=== PATIENT | male | born 1960 | race African-American/Black ===

== ENCOUNTER 2017-07-06 10:17 | Emergency (ER) | payer OTHER ==
[2017-07-06 10:23] VITALS: BP 134/63; PULSE 53; TEMP 97.5; BMI 27.7
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
[2017-07-06] MEDS ORDERED: ONDANSETRON 4 MG/2 ML VIAL IVPUSH ONE (10:55)
[2017-07-06] MEDS ORDERED: morphine CARPU-JECT 4 MG/1 ML DISP.SYRIN IVPUSH ONE (10:55)
[2017-07-06 11:01] LABS: URINE APPEARANCE CLEAR; URINE BILIRUBIN NEGATIVE (NEGATIVE); URINE BLOOD NEGATIVE (NEGATIVE); URINE COLOR YELLOW; URINE GLUCOSE (UA) NEGATIVE (NEGATIVE); URINE KETONE NEGATIVE (NEGATIVE); URINE LEUK ESTERASE NEGATIVE (NEGATIVE); URINE NITRITE NEGATIVE (NEGATIVE); URINE PROTEIN NEGATIVE (NEGATIVE)
[2017-07-06 11:10] LABS: URINE MARIJUANA THC POSITIVE ng/ml (CUTOFF=50)
[2017-07-06] MEDS ORDERED: morphine CARPU-JECT 8 MG/1 ML DISP.SYRIN ONE (11:22)
[2017-07-06] MEDS ORDERED: ONDANSETRON 4 MG/2 ML VIAL ONE (11:23)
[2017-07-06 11:27] LABS: BASO % 1.1 % (0-2.0); EOS # 0.2 # (0-4.5); EOS % 6.9 % (0-4.5); LYMPH # 1.6 (8-40); MCH 26.8 pg (25.7-33.7); MEAN CELL VOLUME 83.8 fl (80-96); MEAN PLT VOLUME 8.7 fl (7.5-11.1); MONO # 0.3 # (3.8-10.2); NEUT # 1.5 # (42.8-82.8); NEUT % 40.9 % (42.8-82.8); PLATELET COUNT 191 K/MM3 (134-434); RDW 13.2 % (11.9-15.9); WHITE BLOOD COUNT 3.6 K/mm3 (4.0-10.0)
[2017-07-06 11:58] LABS: ALBUMIN 3.7 g/dl (3.4-5.0); ANION GAP 7 (8-16); BILIRUBIN,TOTAL 0.4 mg/dL (0.2-1.0); CALCIUM 8.3 mg/dL (8.5-10.1); CO2 26 mmol/L (21-32); CREATININE 0.9 mg/dL (0.7-1.3); GLUCOSE,RANDOM 91 mg/dL (74-106); SGOT/AST 10 U/L (15-37); SGPT/ALT 18 U/L (12-78); TOT PROT 6.9 g/dl (6.4-8.2)
[2017-07-06 12:01] LABS: ALK PHOS 67 U/L (45-117); CPK 320 IU/L (39-308); TROPONIN I < 0.02 ng/ml (0.00-0.05)
[2017-07-06 12:07] LABS: INR 1.04 (0.82-1.09); PROTHROMBIN TIME (PATIENT) 11.7 SEC (9.98-11.88)
[2017-07-06 14:21] LABS: URINE LEUK ESTERASE Negative (NEGATIVE)
--- NOTE | 2017-07-06 15:17 | EKG ---
Test Reason : Blood Pressure : / mmHG Vent. Rate : 046 BPM Atrial Rate : 046 BPM P-R Int : 150 ms QRS Dur : 106 ms QT Int : 436 ms P-R-T Axes : 037 038 037 degrees QTc Int : 381 ms SINUS BRADYCARDIA MINIMAL VOLTAGE CRITERIA FOR LVH, MAY BE NORMAL VARIANT BORDERLINE ECG WHEN COMPARED WITH ECG OF 11-FEB-2015 19:40, NO SIGNIFICANT CHANGE WAS FOUND Confirmed by JOHNATHAN BENJAMIN MD ([id number]) on 07/06/2017 3:16:57 PM Referred By: Confirmed By:JOHNATHAN BENJAMIN MD
== END 2017-07-06 15:10 | disposition home or self-care (01) ==
LOC: JER 10:17
PROC: 3E033NZ Introduction of Analgesics, Hypnotics, Sedatives into Peripheral Vein, Percutaneous Approach (ICD-10-PCS; principal; 2017-07-06)
PROC: 3E033GC Introduction of Other Therapeutic Substance into Peripheral Vein, Percutaneous Approach (ICD-10-PCS; 2017-07-06)
DX: R07.89 Other chest pain (principal)
CPT/HCPCS: 36415; 71010-TC; 71275-TC; 80053; 80307; 81003; 82550; 82553; 83880; 84484; 85025; 85610; 93005; 93010; 96374; 96375; 99285-25

== ENCOUNTER 2017-07-18 09:44 | Emergency (ER) | payer OTHER ==
[2017-07-18 09:59] VITALS: BP 138/54; PULSE 78; TEMP 97; BMI 27.7
[2017-07-18] MEDS ORDERED: ACETAMINOPHEN 500 MG TABLET (FP) ONE (10:38)
[2017-07-18] MEDS ORDERED: ACETAMINOPHEN 500 MG TABLET (FP) PO ONE (10:46)
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
== END 2017-07-18 11:06 | disposition home or self-care (01) ==
LOC: JERFT 09:44
DX: S13.4XXA Sprain of ligaments of cervical spine, initial encounter (principal); V44.6XXA Car passenger injured in collision with heavy transport vehicle or bus in traffic accident, initial encounter; Y92.481 Parking lot as the place of occurrence of the external cause; Y93.89 Activity, other specified; Y99.8 Other external cause status
CPT/HCPCS: 99281-25

== ENCOUNTER 2017-09-29 17:32 | Emergency (ER) | payer OTHER ==
[2017-09-29 17:35] VITALS: BP 127/71; PULSE 77; TEMP 98.4; BMI 26.9
--- NOTE | 2017-09-29 17:46 | PDOC ---
Rapid Medical Evaluation Chief Complaint: Chest Pain Time Seen by Provider: 09/29/17 17:35 Medical Evaluation: Allergies Allergy/AdvReac Type Severity Reaction Status Date / Time aspirin Allergy nose bleeds Verified 09/29/17 17:35 ibuprofen Allergy Verified 09/29/17 17:35 NSAIDS (Non-Steroidal Allergy Verified 09/29/17 17:35 Anti-Inflamma Vital Signs Temp Pulse Resp BP Pulse Ox 98.4 F 77 18 127/71 100 09/29/17 17:33 09/29/17 17:33 09/29/17 17:33 09/29/17 17:33 09/29/17 17:33 09/29/17 17:35 The patient presents with a chief complaint of: Left sided chest pain since this morning. Chest pain started at home with no provoking factors. I have performed a brief in-person evaluation of this patient; Pertinent physical exam findings: ambulatory, in no respiratory distress, RRR, CTAB I have ordered the following: CBC, CMP, Trop, pt/inr, cxr, ekg The patient will proceed to the ED for further evaluation.
[2017-09-29 18:31] LABS: BASO % 1.1 % (0-2.0); EOS % 2.6 % (0-4.5); HEMATOCRIT 38.1 % (35.4-49); HEMOGLOBIN 12.7 GM/dL (11.7-16.9); LYMPH % 34.7 % (8-40); MCH 28.4 pg (25.7-33.7); MCHC 33.2 g/dl (32.0-35.9); MEAN CELL VOLUME 85.4 fl (80-96); MONO % 6.6 % (3.8-10.2); PLATELET COUNT 211 K/MM3 (134-434); RBC 4.46 M/mm3 (4.00-5.60); RDW 13.4 % (11.9-15.9); WHITE BLOOD COUNT 5.5 K/mm3 (4.0-10.0)
[2017-09-29 19:08] LABS: ALK PHOS 70 U/L (45-117); ANION GAP 11 (8-16); BILIRUBIN,TOTAL 0.3 mg/dL (0.2-1.0); BLOOD UREA NITROGEN 10 mg/dL (7-18); CALCIUM 8.9 mg/dL (8.5-10.1); CHLORIDE 105 mmol/L (98-107); CO2 26 mmol/L (21-32); CREATININE 1.1 mg/dL (0.7-1.3); GLUCOSE,RANDOM 143 mg/dL (74-106); POTASSIUM 3.8 mmol/L (3.5-5.1); SGOT/AST 18 U/L (15-37); SGPT/ALT 20 U/L (12-78); SODIUM 142 mmol/L (136-145); TOT PROT 7.8 g/dl (6.4-8.2)
[2017-09-29 19:26] LABS: INR 0.99 (0.82-1.09); PROTHROMBIN TIME (PATIENT) 11.2 SEC (9.98-11.88)
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
--- NOTE | 2017-09-29 20:17 | PDOC ---
*Physical Exam - Vital Signs Last Vital Signs Temp Pulse Resp BP Pulse Ox 98.4 F 77 18 127/71 100 09/29/17 17:33 09/29/17 17:33 09/29/17 17:33 09/29/17 17:33 09/29/17 17:33 ED Treatment Course - LABORATORY CBC & Chemistry Diagram: 09/29/17 18:16 09/29/17 18:16 - ADDITIONAL ORDERS Additional order review: Laboratory Results 09/29/17 09/29/17 09/29/17 18:16 18:16 18:16 PT with INR 11.20 INR 0.99 Sodium 142 Potassium 3.8 Chloride 105 Carbon Dioxide 26 Anion Gap 11 BUN 10 D Creatinine 1.1 D Creat Clearance w eGFR > 60 Random Glucose 143 H D Calcium 8.9 Total Bilirubin 0.3 D AST 18 D ALT 20 Alkaline Phosphatase 70 Creatine Kinase 516 H Creatine Kinase Index 0.3 CK-MB (CK-2) 1.801 Troponin I < 0.02 Total Protein 7.8 Albumin 4.0 09/29/17 18:16 RBC 4.46 MCV 85.4 MCHC 33.2 RDW 13.4 MPV 9.0 Neutrophils % 55.0 D Lymphocytes % 34.7 Monocytes % 6.6 Eosinophils % 2.6 Basophils % 1.1 Medical Decision Making - Medical Decision Making 09/29/17 20:16 agree with care from ZARA Solano *DC/Admit/Observation/Transfer Diagnosis at time of Disposition: Atypical chest pain - Discharge Dispostion Disposition: HOME Condition at time of disposition: Good - Referrals Referrals: Kentrell Awad MD [Staff Physician] - Call tomorrow Oskar Carson MD [Primary Care Provider] - - Patient Instructions Printed Discharge Instructions: DI for Atypical Chest Pain Additional Instructions: Discharge Instructions: -Your chest xray, EKG and labs were normal. -Please follow up with Dr. Awad within 1 week if you continue to have chest pain -Return to the ER immediately with any worsening or concerning symptoms - Post Discharge Activity
--- NOTE | 2017-09-30 09:56 | EKG ---
Test Reason : Blood Pressure : / mmHG Vent. Rate : 062 BPM Atrial Rate : 062 BPM P-R Int : 156 ms QRS Dur : 088 ms QT Int : 388 ms P-R-T Axes : 060 030 037 degrees QTc Int : 393 ms NORMAL SINUS RHYTHM NORMAL ECG WHEN COMPARED WITH ECG OF 06-JUL-2017 10:23, NO SIGNIFICANT CHANGE WAS FOUND Confirmed by JANET ALDRIDGE MD ([id number]) on 09/30/2017 9:56:36 AM Referred By: Confirmed By:JANET ALDRIDGE MD
== END 2017-09-29 21:21 | disposition home or self-care (01) ==
LOC: JER 17:32
DX: R07.89 Other chest pain (principal); I25.10 Atherosclerotic heart disease of native coronary artery without angina pectoris; I10 Essential (primary) hypertension; Z95.5 Presence of coronary angioplasty implant and graft; I42.8 Other cardiomyopathies; B18.2 Chronic viral hepatitis C; F41.9 Anxiety disorder, unspecified
CPT/HCPCS: 36415; 71046-TC-FY; 80053; 82550; 82553; 84484; 85025; 85610; 93005; 93010; 99283-25

== ENCOUNTER 2017-10-22 13:35 | Emergency (ER) | payer OTHER ==
[2017-10-22 13:40] VITALS: PULSE 78; BMI 26.9
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
--- NOTE | 2017-10-22 15:07 | PDOC ---
Attending Attestation - Resident Resident Name: Domo Crowder - ED Attending Attestation I have performed the following: The case was reviewed & discussed with the resident - Medical Decision Making 57 years old hypertension cardiomyopathy hep C diabetes presents with 1 week history of generalized abdominal discomfort headaches frequent urination. Patient does not take any medications for his diabetes. Symptoms have been moderate persistent constant no exacerbating or relieving factors. No fever vomiting diarrhea. Differential diagnosis includes infection less likely ACS, hypoglycemia We'll check labs hydrate IV Tylenol observe and reassess. to follow up labs and reasses <Simon Rick - Last Filed: 10/22/17 16:15> - HPI HPI: 10/22/17 15:14 The patient is a 57 year old male, with a significant PMH of hypertension, hyperlipidemia, pre-diabetes mellitus, hepatitis C, who presents to the emergency department with 1 week of generalized weakness, headache, abdominal discomfort, nausea without vomiting and increased urinary frequency. The patient states he does not take medicine for the pre-diabetes mellitus. The patient denies chest pain, shortness of breath, and dizziness. Denies fever, chills, vomit, diarrhea and constipation. Denies dysuria and hematuria. Allergies: Multiple allergies. See nursing notes. Social History: Denies EtOH use. Denies tobacco use. Reports occasional marijuana use. Documentation prepared by Juventino Lawson, acting as medical billing supervisor for Simon Rick MD. - Physicial Exam PE: 10/22/17 15:55 Vitals: Triage vital signs reviewed General Appearance: No acute distress, well nourished, well developed Head: Atraumatic Eyes: Pupils equal reactive round, extraocular movement intact Ears: TM's normal bilaterally Nose: Nares patent bilaterally; no nasal congestion Throat: Posterior oropharynx without erythema, mucous membranes moist Neck: Supple; No nuchal rigidity Chest Wall: Nontender Cardiac: Regular rate and rhythm, no murmurs, no rubs, no gallops Lungs: Clear to auscultation bilateral, good air movement bilaterally Abdomen: Soft, nondistended, normal bowel sounds, nontender to palpation Rectal: Exam deferred Extremities: Full range of motion to all extremities, no cyanosis, clubbing, or edema Skin: Warm and dry, no rashes or lesions, no rash, no petechiae Neuro: AOX3; Cranial Nerves 2-12 grossly intact, Strength intact to all extremities, Sensation intact to all extremities, gait normal Psych: Normal mood, normal affect <Juventino Lawson - Last Filed: 10/22/17 16:33>
[2017-10-22] MEDS ORDERED: METOCLOPRAMIDE HCL INJECTION 10 MG/2 ML VIAL IVPUSH ONE (15:09)
[2017-10-22] MEDS ORDERED: SODIUM CHLORIDE 1,000 ML IV STA ×2 (15:09)
[2017-10-22] MEDS ORDERED: METOCLOPRAMIDE HCL INJECTION 10 MG/2 ML VIAL ONE (15:49)
[2017-10-22 16:13] LABS: BASO % 0.9 % (0-2.0); EOS % 2.7 % (0-4.5); HEMATOCRIT 36.4 % (35.4-49); HEMOGLOBIN 12.4 GM/dL (11.7-16.9); LYMPH % 26.8 % (8-40); MCH 28.8 pg (25.7-33.7); MEAN CELL VOLUME 84.7 fl (80-96); MEAN PLT VOLUME 8.8 fl (7.5-11.1); MONO % 6.6 % (3.8-10.2); PLATELET COUNT 199 K/MM3 (134-434); RDW 13.4 % (11.9-15.9); WHITE BLOOD COUNT 5.9 K/mm3 (4.0-10.0)
[2017-10-22] MEDS ORDERED: ACETAMINOPHEN 1000 MG/100 ML VIAL (NON FORMULARY) IVPB ONE (16:21)
[2017-10-22 16:36] LABS: ALBUMIN 3.8 g/dl (3.4-5.0); ALK PHOS 65 U/L (45-117); ANION GAP 10 (8-16); BILIRUBIN,TOTAL 0.3 mg/dL (0.2-1.0); BLOOD UREA NITROGEN 13 mg/dL (7-18); CALCIUM 9.3 mg/dL (8.5-10.1); CHLORIDE 105 mmol/L (98-107); CO2 27 mmol/L (21-32); CREATININE 1.2 mg/dL (0.7-1.3); GLUCOSE,RANDOM 108 mg/dL (74-106); POTASSIUM 3.8 mmol/L (3.5-5.1); SGOT/AST 22 U/L (15-37); SGPT/ALT 19 U/L (12-78); SODIUM 142 mmol/L (136-145); TOT PROT 7.5 g/dl (6.4-8.2)
[2017-10-22] MEDS ORDERED: ACETAMINOPHEN INJECTION 100 ML IVPB ONE (16:36)
[2017-10-22 16:50] LABS: URINE APPEARANCE TURBID; URINE BILIRUBIN NEGATIVE (<2.0 mg/dL); URINE BLOOD NEGATIVE (NEGATIVE); URINE COLOR YELLOW; URINE GLUCOSE (UA) NEGATIVE (NEGATIVE); URINE KETONE NEGATIVE (NEGATIVE); URINE LEUK ESTERASE NEGATIVE (NEGATIVE); URINE NITRITE NEGATIVE (NEGATIVE); URINE PROTEIN NEGATIVE (NEGATIVE)
--- NOTE | 2017-10-22 18:08 | PDOC ---
*Physical Exam - Vital Signs Last Vital Signs Temp Pulse Resp BP Pulse Ox 98.3 F 78 18 110/68 98 10/22/17 13:38 10/22/17 13:38 10/22/17 13:38 10/22/17 13:38 10/22/17 13:38 - Physical Exam Comments: 10/22/17 18:05 gen: aaox3, nad heart: +s1s2 reg lungs: cta b/l abd: soft, nt/nd +bs Ext: no edema ED Treatment Course - LABORATORY CBC & Chemistry Diagram: 10/22/17 16:00 10/22/17 16:00 - ADDITIONAL ORDERS Additional order review: Laboratory Results 10/22/17 10/22/17 10/22/17 16:15 16:15 16:00 Sodium Potassium Chloride Carbon Dioxide Anion Gap BUN Creatinine Creat Clearance w eGFR Random Glucose Calcium Total Bilirubin AST ALT Alkaline Phosphatase Troponin I < 0.02 Total Protein Albumin Urine Color Yellow Urine Appearance Turbid Urine pH 7.0 Ur Specific [place] 1.023 Urine Protein Negative Urine Glucose (UA) Negative Urine Ketones Negative Urine Blood Negative Urine Nitrite Negative Urine Bilirubin Negative Urine Urobilinogen 2.0 Ur Leukocyte Esterase Negative Acetone, Qual Negative 10/22/17 16:00 Sodium 142 Potassium 3.8 Chloride 105 Carbon Dioxide 27 Anion Gap 10 BUN 13 D Creatinine 1.2 Creat Clearance w eGFR > 60 Random Glucose 108 H D Calcium 9.3 Total Bilirubin 0.3 AST 22 D ALT 19 Alkaline Phosphatase 65 Troponin I Total Protein 7.5 Albumin 3.8 Urine Color Urine Appearance Urine pH Ur Specific [place] Urine Protein Urine Glucose (UA) Urine Ketones Urine Blood Urine Nitrite Urine Bilirubin Urine Urobilinogen Ur Leukocyte Esterase Acetone, Qual 10/22/17 16:00 RBC 4.30 MCV 84.7 MCHC 34.0 RDW 13.4 MPV 8.8 Neutrophils % 63.0 Lymphocytes % 26.8 D Monocytes % 6.6 Eosinophils % 2.7 Basophils % 0.9 - Medications Given in the ED: ED Medications Discontinued Medications Generic Name Dose Route Start Last Admin Trade Name Freq PRN Reason Stop Dose Admin Acetaminophen 1,000 mg 10/22/17 16:21 10/22/17 16:58 Ofirmev Injection - IVPB 10/22/17 16:22 1,000 mg ONCE ONE Administration Sodium Chloride 1,000 mls @ 1,000 mls/hr 10/22/17 15:09 10/22/17 16:02 Normal Saline - IV 10/22/17 16:08 1,000 mls/hr ASDIR STA Administration Sodium Chloride 1,000 mls @ 1,000 mls/hr 10/22/17 15:09 10/22/17 16:18 Normal Saline - IV 10/22/17 16:08 1,000 mls/hr ASDIR STA Administration Metoclopramide HCl 10 mg 10/22/17 15:09 10/22/17 16:03 Reglan Injection - IVPUSH 10/22/17 15:10 10 mg ONCE ONE Administration Medical Decision Making - Medical Decision Making 10/22/17 18:06 pt signed out by the prior attending pending troponin results pt states he has epigastric burning first thing in the AM has appt with Dr. Delatorre on November 16 hx of gastritis and EGD in the past worse when eating tomatoes and drinking soda abd soft, nt/nd +bs discussed all lab results. 10/22/17 18:07 pt stable for d/c to home answered all questions on nexium discussed all reasons to return to the ED and need for follow up *DC/Admit/Observation/Transfer Diagnosis at time of Disposition: Epigastric pain Headache Qualifiers: Headache type: unspecified Headache chronicity pattern: unspecified pattern Intractability: not intractable Qualified Code(s): R51 - Headache - Discharge Dispostion Disposition: HOME Condition at time of disposition: Good Admit: No - Referrals Referrals: Oskar Carson MD [Primary Care Provider] - Naif Delatorre MD [Staff Physician] - - Patient Instructions Printed Discharge Instructions: DI for Diabetes Type 2, DI for Headache, DI for Abdominal Pain-Adult Additional Instructions: Please return to the ER if you experience concerning or worsening symptoms including worsening headache, abdominal pain, vomiting, fevers, or difficulty breathing. Your lab results were normal here in the ER. It is important that you call to schedule a follow up appointment with your primary care provider to discuss your ER visit and further management of your symptoms. - Post Discharge Activity
[2017-10-22 18:56] VITALS: BP 127/85; TEMP 98.5
--- NOTE | 2017-10-23 09:28 | EKG ---
Test Reason : Blood Pressure : / mmHG Vent. Rate : 066 BPM Atrial Rate : 066 BPM P-R Int : 152 ms QRS Dur : 096 ms QT Int : 396 ms P-R-T Axes : 057 039 051 degrees QTc Int : 415 ms NORMAL SINUS RHYTHM NORMAL ECG WHEN COMPARED WITH ECG OF 29-SEP-2017 17:41, NO SIGNIFICANT CHANGE WAS FOUND Confirmed by LORAINE BARNARD MD ([id number]) on 10/23/2017 9:27:38 AM Referred By: Confirmed By:LORAINE BARNARD MD
== END 2017-10-22 18:35 | disposition home or self-care (01) ==
LOC: JER 13:35
PROC: 3E0337Z Introduction of Electrolytic and Water Balance Substance into Peripheral Vein, Percutaneous Approach (ICD-10-PCS; principal; 2017-10-22)
PROC: 3E033GC Introduction of Other Therapeutic Substance into Peripheral Vein, Percutaneous Approach (ICD-10-PCS; 2017-10-22)
PROC: 3E033NZ Introduction of Analgesics, Hypnotics, Sedatives into Peripheral Vein, Percutaneous Approach (ICD-10-PCS; 2017-10-22)
DX: R51 Headache (principal); I10 Essential (primary) hypertension; E11.9 Type 2 diabetes mellitus without complications; I42.9 Cardiomyopathy, unspecified; Z98.61 Coronary angioplasty status; B18.2 Chronic viral hepatitis C
CPT/HCPCS: 36415; 80053; 81003; 82009; 84484; 85025; 93005; 93010; 99283-25; J0131; J7030

== ENCOUNTER 2018-12-27 06:15 | Inpatient (IN) | payer OTHER ==
[2018-12-20 13:13] VITALS: BMI 25.9
[2018-12-27] MEDS ORDERED: CEFAZOLIN 2 GM/D5W 2 GM/50 ML ML IVPB ONE (06:46)
[2018-12-27] MEDS ORDERED: ROPIVICAINE 0.2%/MORPH PF/KETOROLAC - 51ML DISP.SYRINGE IA ONE ×3 (06:46→10:06)
[2018-12-27] MEDS ORDERED: GABAPENTIN 300 MG CAPSULE (FP) PO ONE (06:46)
[2018-12-27] MEDS ORDERED: oxyCODONE HCL 10 MG SUSTAINED ACTING TABLET PO ONE ×2 (06:46→21:15)
[2018-12-27] MEDS ORDERED: TRANEXAMIC ACID 1000 MG/10 ML VIAL IVPUSH ONE ×2 (06:46→10:05)
[2018-12-27] MEDS ORDERED: CELECOXIB 200 MG CAPSULE PO ONE (06:46)
[2018-12-27] MEDS ORDERED: PANTOPRAZOLE 40 MG TABLET (FP) PO ONE (06:47)
[2018-12-27] MEDS ORDERED: CELECOXIB 200 MG CAPSULE ONE (06:53)
[2018-12-27] MEDS ORDERED: VANCOMYCIN 1,000 MG VIAL (RESTRICTED TO ID ONLY) ONE (07:07)
[2018-12-27] MEDS ORDERED: ceFAZolin SODIUM 1 GM VIAL ONE (07:07)
[2018-12-27] MEDS ORDERED: ePHEDrine SULFATE 50 MG/1 ML AMPULE ONE (07:15)
[2018-12-27] MEDS ORDERED: SUCCINYLCHOLINE CHLORIDE 200 MG/10 ML VIAL ONE (07:16)
[2018-12-27] MEDS ORDERED: PROPOFOL 20 ML ONE ×3 (07:16)
[2018-12-27] MEDS ORDERED: BUPIVACAINE HCL/PF 0.5% (5MG/ML) 10 ML VIAL ONE (07:19)
[2018-12-27] MEDS ORDERED: LIDOCAINE 1% P/F 10 MG/ML VIAL ONE (07:25)
[2018-12-27] MEDS ORDERED: MIDAZOLAM HCL 2 MG/2 ML SINGLE DOSE VIAL ONE ×3 (07:25→09:56)
[2018-12-27] MEDS ORDERED: DEXAMETHASONE SOD PHOSPHATE 4 MG/1 ML VIAL ONE (07:27)
--- NOTE | 2018-12-27 07:47 | HP ---
Admitting History and Physical - Admission Chief Complaint: right hip osteoarthritis x years History of Present Illness: 58 year old male presents today in regard to his right hip. Longstanding history of right hip osteoarthritis. Patient complains of pain, limited ROM, difficulty ambulating and difficulties completing activities of daily living. Patient has failed conservative treatment options including PO medications, injections, activity modifications and exercise programs. At this point, patient wishes to proceed with surgical intervention, right total hip arthroplasty - MAKOplasty. History Source: Patient - Past Medical History Cardiovascular: Yes: HTN Musculoskeletal: Yes: Osteoarthritis - Past Surgical History Additional Past Surgical History: See written history & physical. - Smoking History Smoking history: Never smoked Have you smoked in the past 12 months: No Aproximately how many cigarettes per day: 0 - Alcohol/Substance Use Hx Alcohol Use: No Home Medications - Allergies Allergies/Adverse Reactions: Allergies Allergy/AdvReac Type Severity Reaction Status Date / Time aspirin Allergy Mild nose bleeds Verified 12/27/18 07:09 ibuprofen Allergy Mild NOSE BLEEDS Verified 12/27/18 07:09 NSAIDS (Non-Steroidal Allergy Mild NOSE BLEEDS Verified 12/27/18 07:09 Anti-Inflamma - Home Medications Home Medications: Ambulatory Orders Amlodipine Besylate [Norvasc -] 10 mg PO DAILY 07/06/17 Oxycodone HCl 30 mg PO Q4H PRN 10/22/17 Aspirin [Aspirin EC] 81 mg PO DAILY 12/20/18 Multivitamin [One-Daily Multi-Vitamin] 1 each PO DAILY 12/20/18 Family Disease History - Family Disease History Family Disease History: Other: Father (HTN-), Mother (HTN-) Review of Systems - Review of Systems Musculoskeletal: reports: Decreased ROM (right hip), Joint Pain (right hip) Physical Examination Vital Signs: Vital Signs Temperature 99 F 12/27/18 06:38 Pulse Rate 74 12/27/18 06:38 Respiratory Rate 18 12/27/18 06:38 Blood Pressure 126/76 12/27/18 06:38 O2 Sat by Pulse Oximetry (%) Constitutional: Yes: Well Nourished, No Distress Eyes: Yes: Conjunctiva Clear HENT: Yes: Atraumatic Neck: Yes: Supple Cardiovascular: Yes: Regular Rate and Rhythm Respiratory: Yes: Regular Gastrointestinal: Yes: Soft ...Rectal Exam: Yes: Deferred Musculoskeletal: Yes: Joint Stiffness (right hip), Joint Swelling (right hip) Assessment/Plan 58 year old male presents today in regard to his right hip. Longstanding history of right hip osteoarthritis. Patient complains of pain, limited ROM, difficulty ambulating and difficulties completing activities of daily living. Patient has failed conservative treatment options including PO medications, injections, activity modifications and exercise programs. At this point, patient wishes to proceed with surgical intervention, right total hip arthroplasty - MAKOplasty. Pros, cons, risks, benefits and alternatives of a right total hip arthroplasty - MAKOplasty, was discussed with the patient at length. Patient confirms his understanding and consents to proceed with a right total hip arthroplasty, MAKOplasty.
[2018-12-27] MEDS ORDERED: oxyCODONE HCL 5 MG TABLET PO PRN ×5 (08:57→21:14)
[2018-12-27] MEDS ORDERED: ONDANSETRON 4 MG/2 ML VIAL IVPUSH PRN ×2 (08:57→12:01)
[2018-12-27] MEDS ORDERED: ACETAMINOPHEN 325 MG TABLET (FP) PO SCH (09:00)
[2018-12-27] MEDS ORDERED: oxyCODONE HCL 10 MG SUSTAINED ACTING TABLET PO SCH (10:00)
[2018-12-27] MEDS ORDERED: VANCOMYCIN 1,000 MG VIAL (RESTRICTED TO ID ONLY) IVPB ONE (10:05)
--- NOTE | 2018-12-27 11:55 | OP ---
Operative Note - Note: Operative Date: 12/27/18 Pre-Operative Diagnosis: right hip OA Operation: right ADILENE FLORY Post-Operative Diagnosis: Same as Pre-op Surgeon: River Solis Foot Cutter: Iza Frye Anesthesia: Spinal Estimated Blood Loss (mls): 200
--- NOTE | 2018-12-27 11:59 | PN ---
Progress Note (short form) - Note Progress Note: Pt states he has not had a nosebleed in 10+ yrs. Does not remember what ASA dose he took to cause nosebleed. Currently taking 81mg ASA without incident. Will need ASA for DVT ppx. Alternatives such as Xarelto or Eliquis may cause worse nosebleeds. Will try ASA 162mg BID to see if this causes any bleeds.
[2018-12-27] MEDS ORDERED: ACETAMINOPHEN 1000 MG/100 ML VIAL (NON FORMULARY) IVPB ONE (12:00)
[2018-12-27] MEDS ORDERED: traMADol HCL 50 MG TABLET PO SCH (12:00)
[2018-12-27] MEDS ORDERED: MAG HYDROX/AL HYDROX/SIMETH 30 ML UNIT-DOSE CUP PO PRN (12:01)
[2018-12-27] MEDS ORDERED: MAGNESIUM HYDROX 2400MG/30ML ORAL SUSPENSION 30 ML CUP PO PRN (12:01)
[2018-12-27] MEDS ORDERED: ACETAMINOPHEN INJECTION 100 ML IVPB ONE (12:07)
[2018-12-27] MEDS ORDERED: traMADol HCL 50 MG TABLET ONE (12:07)
[2018-12-27] MEDS ORDERED: LACTATED RINGERS SOLUTION 1,000 ML IV SCH (12:15)
[2018-12-27] MEDS: ACETAMINOPHEN 325 MG TABLET (FP) PO SCH (17:42)
[2018-12-27] MEDS: traMADol HCL 50 MG TABLET PO SCH (17:44)
[2018-12-27] MEDS: CEFAZOLIN 2 GM/D5W 2 GM/50 ML ML IVPB SCH (17:46)
[2018-12-27] MEDS ORDERED: DEXAMETHASONE SOD PHOSPHATE 10 MG/1 ML VIAL IVPB ONE (20:00)
[2018-12-27] MEDS ORDERED: oxyCODONE HCL 10 MG SUSTAINED ACTING TABLET ONE (21:16)
[2018-12-27] MEDS: SENNOSIDES/DOCUSATE COMBO (SENNA PLUS) TABLET (UD) PO SCH (21:19)
[2018-12-27] MEDS: oxyCODONE HCL 10 MG SUSTAINED ACTING TABLET PO SCH (21:20)
[2018-12-27] MEDS: ASCORBIC ACID 500 MG TABLET (FP) PO SCH (21:21)
[2018-12-27] MEDS: GABAPENTIN 300 MG CAPSULE (FP) PO SCH (21:21)
[2018-12-28] MEDS: traMADol HCL 50 MG TABLET PO SCH ×5 (00:40→23:16)
[2018-12-28] MEDS: ACETAMINOPHEN 325 MG TABLET (FP) PO SCH ×5 (00:41→23:15)
[2018-12-28] MEDS: CEFAZOLIN 2 GM/D5W 2 GM/50 ML ML IVPB SCH (02:00)
[2018-12-28 08:14] LABS: HEMATOCRIT 34.9 % (35.4-49); HEMOGLOBIN 11.4 GM/dl (11.7-16.9); MCH 28.3 pg (25.7-33.7); MCHC 32.8 g/dl (32.0-35.9); MEAN CELL VOLUME 86.2 fl (80-96); PLATELET COUNT 184 K/MM3 (134-434); RBC 4.05 M/mm3 (4.00-5.60); RDW 12.2 % (11.9-15.9); WHITE BLOOD COUNT 12.1 K/mm3 (4.0-10.8)
[2018-12-28 08:22] LABS: CALCIUM 8.3 mg/dl (8.5-10); CREATININE 0.9 mg/dl (0.55-1.3); POTASSIUM 4.4 mmol/L (3.5-5.1)
[2018-12-28] MEDS: SENNOSIDES/DOCUSATE COMBO (SENNA PLUS) TABLET (UD) PO SCH ×2 (09:11→21:14)
[2018-12-28] MEDS: GABAPENTIN 300 MG CAPSULE (FP) PO SCH ×2 (09:12→21:14)
[2018-12-28] MEDS: amLODIPine BESYLATE 10 MG TABLET (FP) PO SCH (09:12)
[2018-12-28] MEDS: ASCORBIC ACID 500 MG TABLET (FP) PO SCH ×2 (09:12→21:13)
[2018-12-28] MEDS: ASPIRIN COATED 81 MG TABLET.EC PO SCH ×2 (09:13→21:13)
[2018-12-28] MEDS: oxyCODONE HCL 10 MG SUSTAINED ACTING TABLET PO SCH ×2 (09:13→21:13)
[2018-12-28] MEDS: PANTOPRAZOLE 40 MG TABLET (FP) PO SCH (09:14)
[2018-12-28] MEDS: MULTIVITAMINS (DAILY MVI) TABLET (FP) PO SCH (09:28)
--- NOTE | 2018-12-28 15:50 | PN ---
Progress Note (short form) - Note Progress Note: S: Pt. Sitting comfortably in a chair. No complaints. Ambulating O: VAS 2/10 A/P: POD #1 s/p Right Total Hip Replacement 1) continue meds as ordered 2) No apparent anesthetic complications
[2018-12-28] MEDS: LACTATED RINGERS SOLUTION 1,000 ML IV SCH (21:41)
--- NOTE | 2018-12-29 02:06 | PN ---
Progress Note (short form) - Note Progress Note: Pt seen and examined. Doing well. No nosebleed. AVSS Selected Entries 12/28/18 20:00 Temperature 98.0 F Pulse Rate 51 L Respiratory 18 Rate Blood Pressure 141/75 O2 Sat by Pulse 99 Oximetry (%) Oxygen Delivery Room Air Method Laboratory Tests 12/28/18 12/28/18 07:29 07:29 WBC 12.1 H Hgb 11.4 L Hct 34.9 L Plt Count 184 Sodium 135 L Potassium 4.4 Chloride 103 Carbon Dioxide 23 Anion Gap 9 BUN 13.0 Creatinine 0.9 Random Glucose 134 H Calcium 8.3 L Gen: NAD RLE: c/d/i, NVID A/P POD#1 s/p R FLORY PT/OOB - WBAT RLE D/C home in AM
--- NOTE | 2018-12-29 02:28 | DS ---
Physical Examination Vital Signs: Vital Signs Temperature 98.0 F 12/28/18 20:00 Pulse Rate 51 L 12/28/18 20:00 Respiratory Rate 18 12/28/18 20:57 Blood Pressure 141/75 12/28/18 20:00 O2 Sat by Pulse Oximetry (%) 97 12/28/18 20:57 Labs: CBC, BMP 12/28/18 07:29 12/28/18 07:29 Discharge Summary Reason For Visit: RIGHT HIP OSTEOARTHRITIS Current Active Problems Osteoarthritis of right hip (Acute) Procedures: Principal: right ADILENE FLORY Hospital Course: Admitted for elective surgery. Procedure performed without complications. Pt received postoperative antibiotic prophylaxis and DVT ppx. Ambulated with physical therapy. Stable for discharge home with outpatient followup. Condition: Stable - Instructions Diet, Activity, Other Instructions: Dr Solis - Hip Replacement Instructions Keep the Aquacel dressing on until removed by Dr. Solis in 10-14 days - it is antibacterial and waterproof and you can shower with it on. Call the office for a follow-up appointment with Dr. Solis in 10-14 days. ~ Take TWO BABY ASPIRINS (total 162mg) in the morning after breakfast and TWO BABY ASPIRINS (total 162mg) in the evening after dinner for 6 weeks to prevent blood clots in your legs. Take one Pantoprazole 40mg daily for 6 weeks to protect against heartburn and ulcers. Take Cephalexin (antibiotic) 3x/day for 10 days to help prevent skin infection. Take a multivitamin, stool softener and extra Vitamin C supplement daily. For pain: Resume your preop dose of Oxycodone every 4-6hrs. Activity: You can put as much weight on the operative leg as you want. For the first 6 weeks, all you need to do is walk around the house, go up/down stairs, and sit down/get up. After 6 weeks when everything is healed (and bone has grown into the implant) you will be sent for more intensive outpatient physical therapy. Always use a walker or cane for balance and to prevent falls. Expect to see swelling / bruising from the operative site all the way down to your toes. Wear the Compression stocking on the operative side during the day to minimize how much swelling there is in your foot/ankle. Don't wear the stocking at night. You don't have to wear the stocking on the other side. Disposition: [facility]NS/HOME HEALTH CARE - Home Medications Comprehensive Discharge Medication List: Ambulatory Orders Amlodipine Besylate [Norvasc -] 10 mg PO DAILY 07/06/17 Multivitamin [One-Daily Multi-Vitamin] 1 each PO DAILY 12/20/18 Ascorbic Acid [Vitamin C -] 500 mg PO BID tablet 12/29/18 Aspirin Coated [Ecotrin -] 162 mg PO BID tablet.ec 12/29/18 Cephalexin Monohydrate [Keflex -] 500 mg PO TID #30 capsule 12/29/18 Multivitamins [Multivit ([facility] Formulary)] 1 tab PO DAILY tab 12/29/18 Oxycodone HCl 30 mg PO Q4H PRN #90 tablet MDD 180mg 12/29/18 Pantoprazole Sodium [Protonix -] 40 mg PO DAILY #40 tablet.ec 12/29/18 Sennosides/Docusate Sodium [Pericolace -] 2 tablet PO BID tablet 12/29/18
[2018-12-29] MEDS: traMADol HCL 50 MG TABLET PO SCH (06:12)
[2018-12-29] MEDS: ACETAMINOPHEN 325 MG TABLET (FP) PO SCH (06:12)
[2018-12-29 06:49] VITALS: BP 154/69; PULSE 61; TEMP 97.9
[2018-12-29 08:01] LABS: HEMATOCRIT 34.9 % (35.4-49); HEMOGLOBIN 11.4 GM/dl (11.7-16.9); MCH 28.2 pg (25.7-33.7); MCHC 32.6 g/dl (32.0-35.9); MEAN CELL VOLUME 86.4 fl (80-96); MEAN PLT VOLUME 9.1 fl (7.5-11.1); PLATELET COUNT 202 K/MM3 (134-434); RBC 4.05 M/mm3 (4.00-5.60); RDW 13.1 % (11.9-15.9); WHITE BLOOD COUNT 9.8 K/mm3 (4.0-10.8)
[2018-12-29] MEDS: ASCORBIC ACID 500 MG TABLET (FP) PO SCH (09:00)
[2018-12-29] MEDS: GABAPENTIN 300 MG CAPSULE (FP) PO SCH (09:00)
[2018-12-29] MEDS: MULTIVITAMINS (DAILY MVI) TABLET (FP) PO SCH (09:00)
[2018-12-29] MEDS: SENNOSIDES/DOCUSATE COMBO (SENNA PLUS) TABLET (UD) PO SCH (09:00)
[2018-12-29] MEDS: oxyCODONE HCL 10 MG SUSTAINED ACTING TABLET PO SCH (09:00)
[2018-12-29] MEDS: ASPIRIN COATED 81 MG TABLET.EC PO SCH (09:00)
[2018-12-29] MEDS: LACTATED RINGERS SOLUTION 1,000 ML IV SCH (09:00)
[2018-12-29] MEDS: amLODIPine BESYLATE 10 MG TABLET (FP) PO SCH (09:00)
[2018-12-29] MEDS: PANTOPRAZOLE 40 MG TABLET (FP) PO SCH (09:00)
--- NOTE | 2018-12-30 15:52 | PATH ---
Surgical Pathology Report Patient Name: BRIANDA CONTRERAS Med. Rec. #: [id number] /Age/Gender: 1960 (Age: 58) / M Account: [id number] Location: [facility] MED-SURG Taken: 12/27/2018 Received: 12/27/2018 Reported: 12/30/2018 Physicians: River Solis M.D. Specimen(s) Received RIGHT FEMORAL HEAD Clinical History Right hip osteoarthritis Final Diagnosis FEMORAL HEAD, RIGHT, TOTAL HIP REPLACEMENT: DEGENERATIVE JOINT DISEASE. Electronically Signed China Hagen M.D. Gross Description Received in formalin, labeled "right femoral head," is a 5.0 x 5.0 x 4.6 cm. femoral head with a 1.8 cm in length portion of femoral neck attached. The margin of resection is smooth. There is a 1.6 cm in greatest dimension area of eburnation identified. The remaining articular surface is catherine-yellow and diffusely granular. The underlying trabecular bone is yellow and hard. A real estate representative section is submitted in one cassette, following decalcification. /12/29/2018 [facility]12/29/2018
--- NOTE | 2019-01-18 00:58 | SPEC ---
DATE OF OPERATION: 12/27/2018 PREOPERATIVE DIAGNOSIS: Right hip osteoarthritis. POSTOPERATIVE DIAGNOSIS: Right hip osteoarthritis. PROCEDURE: Right total hip replacement with Makoplasty robotic navigation. ATTENDING: Michelle Menard M.D. POWER SHOVEL MECHANIC: Lizandro Camp ANESTHESIA: Spinal plus sedation. ESTIMATED BLOOD LOSS: 200 mL. COMPLICATIONS: None. DISPOSITION: The patient was transferred to the PACU in stable condition. IMPLANTS USED: Dane Accolade 2 size 6 femoral components, Dane Trident 2 56-mm acetabular component with 75-mm acetabular screw, MDM bipolar head ball with inner plus 8 mm offset ball. INDICATION: This is a 58-year-old male who presented to the office complaining of severe right hip pain. He was seen and diagnosed by Dr. Menard, diagnosed with severe right hip osteoarthritis. The patient was initially treated conservatively with injections, medications, and physical therapy, but continued to have severe pain and ambulatory dysfunction. He is therefore indicated for a total hip replacement. The risks, benefits, and alternatives to the procedure were explained to the patient in greater detail, and he elected to proceed with surgery. On the day of surgery, the patient was taken to the operating room and placed on the OR table. Spinal anesthesia was administered by the anesthesiologist. The patient was then positioned in the lateral decubitus position on the table and all bony prominences were padded. An axillary roll was placed. The operative hip was then prepped and draped in the usual sterile fashion and intravenous antibiotics were given for infection prophylaxis. A surgical time-out was then performed with the team, and the patients identity, procedure, side, availability of implants, and the administration of antibiotics were confirmed. An approximately 15-cm longitudinal incision was made through the skin centered on the greater trochanter of the hip. This dissection was carried down through the subcutaneous tissues to the deep fascia. This fascia was then incised and a Cobra was placed around the inferior femoral neck. Electrocautery was used to reflect the anterior 40% of the gluteus medius and minimus starting at the musculotendinous junction and leaving a cuff for closure. This was reflected to reveal the capsule of the hip joint. An anterior capsulectomy was performed and the femoral head and neck were visualized. Grade 4 changes were noted diffusely throughout the joint. At this point, three small stab incisions were made superior to the main incision along the iliac crest. Three self-drilling Steinmann pins were then placed and the Fear Hunters pelvic array was attached. Reference points on the limb were then entered into the robotic device and the limb length deficiency, offset, and femoral neck resection level were then calculated by the software. The hip was then dislocated with traction and external rotation. An oscillating saw was used to make the femoral neck cut at the level previously templated, and the femoral head was removed. Attention was then turned to the acetabulum. Retractors were then placed around the acetabulum and the labrum was removed. An acetabular checkpoint pin and the Fear Hunters software were used to register the contours of the acetabulum. The acetabulum was then reamed in a single stage to the preoperatively templated size using the Fear Hunters robotic arm. The appropriately sized cup was then impacted and had solid fixation as well as the preset inclination and version of 40 and 20 degrees, respectively. A polyethylene liner was then placed in the cup. Attention was then turned back to the femur, which was externally rotated for improved visualization. A femoral neck elevator was used to present the femoral neck cut, a box osteotome was used to enter the femoral canal, and a canal finder was used to go down the femoral shaft. The Jason broaches were used sequentially until the optimal scratch fit was achieved. This correlated with the preoperatively templated size. From here, several different offset head and neck configurations were tested until excellent stability and length were obtained. These measurements were quantified using the Fear Hunters software. All trial components were then removed, the femur was copiously irrigated, and the final components were placed. Leg length and stability were checked again and found to be excellent. Irrigation was performed again. Wound closure was started by repairing the abductor muscles with a no. 2 FiberWire stitch in a Krackow configuration passed through bone tunnels in the greater trochanter and tied over a bony bridge. This repair was then reinforced with a 0 V-Loc 180 barbed suture. Next, no. 1 Polysorb and 0 V-Loc 180 were used to close the fascia. The deep subcutaneous tissue was closed with no. 1 Polysorb sutures, and 2-0 Polysorb was used for the superficial subcutaneous tissue. The skin was closed using both 3-0 V-Loc 90 suture in a running subcuticular fashion and SwiftSet skin adhesive. The Jason array and pins were removed from the iliac crest and the stab incision sites were irrigated and closed with 4-0 Polysorb sutures and SwiftSet skin adhesive. Once this was completed, a sterile dressing was applied. The patient was then awakened and taken to the PACU in stable condition. MICHELLE MENARD M.D. [id number]
== END 2018-12-29 09:25 | disposition home health service (06) | DRG 301 ==
LOC: FM/S 06:15
PROVIDERS: ADMIT Student in an Organized Health Care Education/Training Program; ATTEND Student in an Organized Health Care Education/Training Program
PROC: 8E0W0CZ Robotic Assisted Procedure of Trunk Region, Open Approach (ICD-10-PCS; 2018-12-27)
PROC: 0SR90JZ Replacement of Right Hip Joint with Synthetic Substitute, Open Approach (ICD-10-PCS; principal; 2018-12-27 09:00)
DX: M16.11 Unilateral primary osteoarthritis, right hip (principal); I10 Essential (primary) hypertension
CPT/HCPCS: 36415; 73502-TC-RT-FY; 80048; 85027; 88304-TC; 88311-TC; 94760; 97116-GP; 97163-GP; J0131; J1100

== ENCOUNTER 2019-05-21 18:39 | Inpatient (IN) | payer OTHER ==
[2019-05-21 18:48] VITALS: BMI 28.2
[2019-05-21] MEDS ORDERED: ASPIRIN 81 MG CHEWABLE TABLETS PO ONE (19:33)
[2019-05-21] MEDS ORDERED: NITROGLYCERIN 50MG/D5W 250ML 50 MG/250 ML ML IVPB SCH (19:45)
[2019-05-21] MEDS ORDERED: ASPIRIN 81 MG CHEWABLE TABLETS ONE (19:51)
[2019-05-21] MEDS ORDERED: NITROGLYCERIN 25MG/D5W 250ML 25 MG/250 ML ML IVPB ONE (19:52)
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
[2019-05-21 19:55] LABS: EOS % 2.9 % (0-4.5); HEMATOCRIT 36.8 % (35.4-49); HEMOGLOBIN 12.2 GM/dL (11.7-16.9); LYMPH % 35.3 % (8-40); MCH 27.1 pg (25.7-33.7); MEAN PLT VOLUME 8.9 fl (7.5-11.1); MONO % 6.2 % (3.8-10.2); NEUT % 54.6 % (42.8-82.8); PLATELET COUNT 217 K/MM3 (134-434); RBC 4.49 M/mm3 (4.00-5.60); RDW 15.9 % (11.9-15.9); WHITE BLOOD COUNT 5.2 K/mm3 (4.0-10.0)
[2019-05-21 20:08] LABS: INR 1.02 (0.83-1.09)
[2019-05-21 20:10] LABS: ACTIVATED PTT 24.9 SECONDS (25.2-36.5)
--- NOTE | 2019-05-21 20:41 | PDOC ---
Documentation entered by Sherrie Silverman SCRIBE, acting as scribe for Patricio Person MD. Patricio Person MD: This documentation has been prepared by the boubacaribeHerrera Lincy, SCRIBE, under my direction and personally reviewed by me in its entirety. I confirm that the documentation accurately reflects all work, treatment, procedures, and medical decision making performed by me. Attending Attestation - Resident Resident Name: Mauro Christine - [facility] HPI: 05/21/19 19:27 The patient is a 59-year-old male with a past medical history significant for HTN, prior hx of cocaine use, and Hepatitis C who presents to the emergency department with 4 hours of pressure-like chest pain that radiates up the shoulder. The patient reports the pain presented while he was walking around shopping, and since presentation the pain has gotten worse. The patient reports daily use of baby ASA, last dose this morning. Denies fever, chills, shortness of breath, cough, nausea, or vomiting. Denies taking any medication for the pain. PCP: Dr. Rianna Carson - Physicial Exam PE: 05/21/19 20:40 Patient is awake and alert, well-nourished, in mild Normocephalic, atraumatic Conjunctiva pink No JVD Lungs are clear RRR No lower extremity edema - Medical Decision Making 05/21/19 20:40 59-year-old male with history of hypertension, previous use of cocaine presents with atraumatic left-sided chest pain radiating to the shoulder. Initial EKG shows no evidence of acute ischemia or dysrhythmia. Differential diagnosis includes ACS versus GERD versus PE versus dissection. Will initiate a nitroglycerin drip for anti-ischemic therapy. Patient is currently taking 81 mg of aspirin orally daily. Will administer additional aspirin at this time. Will obtain serial EKGs and serial cardiac enzymes. Likely placement in observation for cardiac evaluation.
[2019-05-21 21:29] LABS: ALBUMIN 3.8 g/dl (3.4-5.0); ALK PHOS 61 U/L (45-117); ANION GAP 4 MMOL/L (8-16); BILIRUBIN,TOTAL 0.3 mg/dL (0.2-1); BLOOD UREA NITROGEN 8.8 mg/dL (7-18); CALCIUM 8.7 mg/dL (8.5-10.1); CHLORIDE 107 mmol/L (98-107); CO2 28 mmol/L (21-32); CREATININE 1.1 mg/dL (0.55-1.3); GLUCOSE,RANDOM 99 mg/dL (74-106); SGOT/AST 31 U/L (15-37); SGPT/ALT 29 U/L (13-61); SODIUM 139 mmol/L (136-145); TOT PROT 7.2 g/dl (6.4-8.2)
[2019-05-21] MEDS ORDERED: SODIUM CHLORIDE 0.9% 500 ML INFUS.BAG IV ONE (21:50)
[2019-05-21] MEDS ORDERED: NITROGLYCERIN 2% OINTMENT - 1GM PACKET TD ONE ×2 (22:34→22:44)
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
[2019-05-21] MEDS ORDERED: ACETAMINOPHEN 325 MG TABLET (FP) PO PRN (23:27)
[2019-05-21] MEDS ORDERED: SODIUM CHLORIDE 1,000 ML IV SCH (23:30)
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
[2019-05-22] MEDS ORDERED: PATIENT'S OWN MEDICATION (NON-FORMULARY) (Oxycodone Hcl [Oxycodone Hcl] 30 MG) PO PRN (00:42)
[2019-05-22] MEDS ORDERED: ONDANSETRON 4 MG TABLET PO PRN (00:42)
[2019-05-22] MEDS ORDERED: oxyCODONE HCL 5 MG TABLET PO PRN (01:13)
[2019-05-22] MEDS ORDERED: ACETAMINOPHEN 325 MG TABLET (FP) PO PRN (01:14)
[2019-05-22] MEDS ORDERED: LIDOCAINE 5% TOPICAL PATCH TP ONE (05:15)
[2019-05-22 06:11] LABS: GLUCOSE,RANDOM 95 mg/dL (74-106)
[2019-05-22 06:12] LABS: CALCIUM 8.4 mg/dL (8.5-10.1); CHLORIDE 109 mmol/L (98-107); CO2 29 mmol/L (21-32); CREATININE 1.1 mg/dL (0.55-1.3); POTASSIUM 4.1 mmol/L (3.5-5.1); SODIUM 141 mmol/L (136-145)
[2019-05-22 06:14] LABS: ALBUMIN 3.7 g/dl (3.4-5.0); BILIRUBIN,TOTAL 0.4 mg/dL (0.2-1); SGOT/AST 30 U/L (15-37); SGPT/ALT 29 U/L (13-61); TOT PROT 7.2 g/dl (6.4-8.2)
[2019-05-22 06:15] LABS: ALK PHOS 64 U/L (45-117)
[2019-05-22 06:44] LABS: URINE APPEARANCE CLEAR; URINE BILIRUBIN NEGATIVE (NEGATIVE); URINE COLOR DK YELLOW; URINE GLUCOSE (UA) NEGATIVE (NEGATIVE); URINE KETONE TRACE (NEGATIVE); URINE LEUK ESTERASE NEGATIVE (NEGATIVE); URINE NITRITE NEGATIVE (NEGATIVE); URINE PROTEIN TRACE (NEGATIVE)
[2019-05-22 06:52] LABS: COCAINE, UR NEGATIVE ng/ml (CUTOFF=300); METHADONE, UR NEGATIVE ng/ml (CUTOFF=300); OPIATES, URI NEGATIVE ng/ml (CUTOFF=300); PHENCYCLIDINE,URINE NEGATIVE ng/ml (CUTOFF=25); URINE AMPHETAMINES NEGATIVE ng/ml (CUTOFF=500); URINE BARBITURATES NEGATIVE ng/ml (CUTOFF=200); URINE BENZODIAZEPINES NEGATIVE ng/ml (CUTOFF=200)
[2019-05-22 07:38] LABS: BASO % 1.3 % (0-2.0); EOS % 4.8 % (0-4.5); HEMATOCRIT 34.6 % (35.4-49); HEMOGLOBIN 11.4 GM/dL (11.7-16.9); LYMPH % 40.4 % (8-40); MCH 26.9 pg (25.7-33.7); MCHC 32.8 g/dl (32.0-35.9); MEAN CELL VOLUME 81.9 fl (80-96); MONO % 8.4 % (3.8-10.2); NEUT % 45.1 % (42.8-82.8); PLATELET COUNT 171 K/MM3 (134-434); RBC 4.23 M/mm3 (4.00-5.60); RDW 15.8 % (11.9-15.9); WHITE BLOOD COUNT 3.9 K/mm3 (4.0-10.0)
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
[2019-05-22 09:04] LABS: ANION GAP 2 MMOL/L (8-16); BLOOD UREA NITROGEN 8.5 mg/dL (7-18); CHOLESTEROL 142 mg/dL (50-200); HDL CHOLESTEROL 56 mg/dL (40-60); LDL CHOLESTEROL (ONLY SJRH) 71 mg/dL (5-100); MAGNESIUM 2.3 mg/dL (1.8-2.4); PHOSPHOROUS 3.2 mg/dL (2.5-4.9); TRIGLYCERIDES 78 mg/dL (0-150)
[2019-05-22] MEDS ORDERED: ASPIRIN 81 MG CHEWABLE TABLETS PO SCH (10:00)
[2019-05-22] MEDS ORDERED: PANTOPRAZOLE 40 MG TABLET (FP) PO SCH (10:00)
[2019-05-22] MEDS ORDERED: ENOXAPARIN NA (PORCINE) 40 MG/0.4 ML DISP.SYRIN SQ SCH (10:00)
[2019-05-22] MEDS ORDERED: FAMOTIDINE 20 MG TABLET PO SCH (10:00)
[2019-05-22] MEDS ORDERED: PATIENT'S OWN MEDICATION (NON-FORMULARY) (Latanoprost/Pf [Latanoprost 0.005% Eye Drop] 1 D OP SCH (10:00)
[2019-05-22] MEDS ORDERED: amLODIPine BESYLATE 10 MG TABLET (FP) PO SCH (10:00)
--- NOTE | 2019-05-22 10:50 | EKG ---
Test Reason : Blood Pressure : / mmHG Vent. Rate : 059 BPM Atrial Rate : 059 BPM P-R Int : 154 ms QRS Dur : 086 ms QT Int : 408 ms P-R-T Axes : 049 027 037 degrees QTc Int : 403 ms POOR DATA QUALITY, INTERPRETATION MAY BE ADVERSELY AFFECTED SINUS BRADYCARDIA OTHERWISE NORMAL ECG WHEN COMPARED WITH ECG OF 22-OCT-2017 15:42, NO SIGNIFICANT CHANGE WAS FOUND Confirmed by CHRISTINA BARR, JENA ([id number]) on 05/22/2019 10:50:17 AM Referred By: Confirmed By:JENA VASQUEZ MD
--- NOTE | 2019-05-22 10:50 | EKG ---
Test Reason : Blood Pressure : / mmHG Vent. Rate : 047 BPM Atrial Rate : 047 BPM P-R Int : 160 ms QRS Dur : 090 ms QT Int : 458 ms P-R-T Axes : 037 030 042 degrees QTc Int : 405 ms SINUS BRADYCARDIA WITH PREMATURE ATRIAL COMPLEXES OTHERWISE NORMAL ECG WHEN COMPARED WITH ECG OF 21-MAY-2019 20:33, PREMATURE ATRIAL COMPLEXES ARE NOW PRESENT Confirmed by JENA VASQUEZ MD ([id number]) on 05/22/2019 10:50:05 AM Referred By: Confirmed By:JENA VASQUEZ MD
--- NOTE | 2019-05-22 11:20 | PN ---
Physical Exam: SUBJECTIVE: Patient seen and examined, denies any chest pain. reports more like sharp pain associated with shoulder movements on admission, currently resolved, no dyspnea, dizziness, cough or pleuritic symptoms. OBJECTIVE: Vital Signs Period Temp Pulse Resp BP Sys/Kearns Pulse Ox Last 24 Hr 97.5 F-99 F 48-89 18-20 101-118/61-78 98-99 Intake & Output 05/19/19 05/20/19 05/21/19 05/22/19 23:59 23:59 23:59 23:59 Intake Total 10 Balance 10 Weight 219 lb 12.8 oz General: sitting in bed, no acute distress neck: soft, supple, no JVd chest: CTAB, no rales or wheezing, no chest wall tenderness noted Extremities: pain with ROM left shoulder but almost full ROM, no visible swelling/erythema or point tenderness noted Abdomen:Soft, obese, NT Psych: pleasant, co-operative. Laboratory Results - last 24 hr 05/21/19 05/21/19 05/21/19 19:43 19:43 19:43 WBC 5.2 RBC 4.49 Hgb 12.2 Hct 36.8 MCV 82.0 MCH 27.1 MCHC 33.0 RDW 15.9 D Plt Count 217 MPV 8.9 Absolute Neuts (auto) 2.9 Neutrophils % 54.6 Lymphocytes % 35.3 D Monocytes % 6.2 Eosinophils % 2.9 Basophils % 1.0 Nucleated RBC % 0 PT with INR 12.00 INR 1.02 PTT (Actin FS) 24.9 L Sodium Potassium Chloride Carbon Dioxide Anion Gap BUN Creatinine Est GFR (CKD-EPI)AfAm Est GFR (CKD-EPI)NonAf Random Glucose Calcium Phosphorus Magnesium Total Bilirubin AST ALT Alkaline Phosphatase Creatine Kinase Cancelled Creatine Kinase Index CK-MB (CK-2) Troponin I Cancelled C-Reactive Protein Total Protein Albumin Triglycerides Cholesterol Total LDL Cholesterol HDL Cholesterol Urine Color Urine Appearance Urine pH Ur Specific [place] Urine Protein Urine Glucose (UA) Urine Ketones Urine Blood Urine Nitrite Urine Bilirubin Urine Urobilinogen Ur Leukocyte Esterase Opiates Screen Methadone Screen Barbiturate Screen Phencyclidine Screen Ur Amphetamines Screen MDMA (Ecstasy) Screen Benzodiazepines Screen Cocaine Screen U Marijuana (THC) Screen 05/21/19 05/21/19 05/21/19 19:43 20:31 22:30 WBC RBC Hgb Hct MCV MCH MCHC RDW Plt Count MPV Absolute Neuts (auto) Neutrophils % Lymphocytes % Monocytes % Eosinophils % Basophils % Nucleated RBC % PT with INR INR PTT (Actin FS) Sodium Cancelled 139 Potassium Cancelled 4.0 Chloride Cancelled 107 Carbon Dioxide Cancelled 28 Anion Gap Cancelled 4 L BUN Cancelled 8.8 Creatinine Cancelled 1.1 Est GFR (CKD-EPI)AfAm Cancelled 84.12 Est GFR (CKD-EPI)NonAf Cancelled 72.58 Random Glucose Cancelled 99 Calcium Cancelled 8.7 Phosphorus Magnesium Total Bilirubin Cancelled 0.3 AST Cancelled 31 ALT Cancelled 29 Alkaline Phosphatase Cancelled 61 Creatine Kinase 1326 H 1131 H Creatine Kinase Index 0.1 0.1 CK-MB (CK-2) 1.8 1.4 Troponin I < 0.02 < 0.02 C-Reactive Protein Total Protein Cancelled 7.2 Albumin Cancelled 3.8 Triglycerides Cholesterol Total LDL Cholesterol HDL Cholesterol Urine Color Urine Appearance Urine pH Ur Specific [place] Urine Protein Urine Glucose (UA) Urine Ketones Urine Blood Urine Nitrite Urine Bilirubin Urine Urobilinogen Ur Leukocyte Esterase Opiates Screen Methadone Screen Barbiturate Screen Phencyclidine Screen Ur Amphetamines Screen MDMA (Ecstasy) Screen Benzodiazepines Screen Cocaine Screen U Marijuana (THC) Screen 05/22/19 05/22/19 05/22/19 04:50 06:00 06:00 WBC RBC Hgb Hct MCV MCH MCHC RDW Plt Count MPV Absolute Neuts (auto) Neutrophils % Lymphocytes % Monocytes % Eosinophils % Basophils % Nucleated RBC % PT with INR INR PTT (Actin FS) Sodium 141 Potassium 4.1 Chloride 109 H Carbon Dioxide 29 Anion Gap 2 L BUN 8.5 Creatinine 1.1 Est GFR (CKD-EPI)AfAm 84.12 Est GFR (CKD-EPI)NonAf 72.58 Random Glucose 95 Calcium 8.4 L Phosphorus 3.2 Magnesium 2.3 Total Bilirubin 0.4 AST 30 ALT 29 Alkaline Phosphatase 64 Creatine Kinase 1091 H Creatine Kinase Index 0.1 CK-MB (CK-2) 1.4 Troponin I < 0.02 C-Reactive Protein < 0.3 Total Protein 7.2 Albumin 3.7 Triglycerides 78 Cholesterol 142 Total LDL Cholesterol 71 HDL Cholesterol 56 Urine Color Dk yellow Urine Appearance Clear Urine pH 7.0 Ur Specific [place] 1.035 Urine Protein Trace Urine Glucose (UA) Negative Urine Ketones Trace H Urine Blood Negative Urine Nitrite Negative Urine Bilirubin Negative Urine Urobilinogen 1.0 Ur Leukocyte Esterase Negative Opiates Screen Negative Methadone Screen Negative Barbiturate Screen Negative Phencyclidine Screen Negative Ur Amphetamines Screen Negative MDMA (Ecstasy) Screen Negative Benzodiazepines Screen Negative Cocaine Screen Negative U Marijuana (THC) Screen Positive A* 05/22/19 06:25 WBC 3.9 L RBC 4.23 Hgb 11.4 L Hct 34.6 L MCV 81.9 MCH 26.9 MCHC 32.8 RDW 15.8 Plt Count 171 D MPV 9.0 Absolute Neuts (auto) 1.8 Neutrophils % 45.1 Lymphocytes % 40.4 H Monocytes % 8.4 Eosinophils % 4.8 H Basophils % 1.3 Nucleated RBC % 0 PT with INR INR PTT (Actin FS) Sodium Potassium Chloride Carbon Dioxide Anion Gap BUN Creatinine Est GFR (CKD-EPI)AfAm Est GFR (CKD-EPI)NonAf Random Glucose Calcium Phosphorus Magnesium Total Bilirubin AST ALT Alkaline Phosphatase Creatine Kinase Creatine Kinase Index CK-MB (CK-2) Troponin I C-Reactive Protein Total Protein Albumin Triglycerides Cholesterol Total LDL Cholesterol HDL Cholesterol Urine Color Urine Appearance Urine pH Ur Specific [place] Urine Protein Urine Glucose (UA) Urine Ketones Urine Blood Urine Nitrite Urine Bilirubin Urine Urobilinogen Ur Leukocyte Esterase Opiates Screen Methadone Screen Barbiturate Screen Phencyclidine Screen Ur Amphetamines Screen MDMA (Ecstasy) Screen Benzodiazepines Screen Cocaine Screen U Marijuana (THC) Screen Active Medications Generic Name Dose Route Start Last Admin Trade Name Freq PRN Reason Stop Dose Admin Acetaminophen 650 mg 05/22/19 01:14 05/22/19 01:31 Tylenol - PO 650 mg Q6H PRN Administration PAIN LEVEL 1-5 Amlodipine Besylate 10 mg 05/22/19 10:00 05/22/19 10:05 Norvasc - PO 10 mg DAILY FLY Administration Aspirin 81 mg 05/22/19 10:00 05/22/19 10:05 Asa - PO 81 mg DAILY FLY Administration Enoxaparin Sodium 40 mg 05/23/19 10:00 Lovenox - SQ DAILY FLY Famotidine 20 mg 05/22/19 10:00 05/22/19 10:06 Pepcid - PO 20 mg DAILY FLY Administration Sodium Chloride 1,000 mls @ 100 mls/hr 05/21/19 23:30 Normal Saline - IV ASDIR FLY Latanoprost 1 drop 05/22/19 22:00 Xalatan 0.005% Eye Drops - OU HS FLY Miscellaneous 1 each 05/22/19 18:00 Lidoderm Patch Removal MC 05/22/19 18:01 ONCE@1800 ONE Ondansetron HCl 4 mg 05/22/19 00:42 Zofran - PO BID PRN NAUSEA Oxycodone HCl 10 mg 05/22/19 01:13 05/22/19 01:25 Roxicodone - PO 10 mg Q4H PRN Administration PAIN LEVEL 6-10 Pantoprazole Sodium 40 mg 05/22/19 10:00 05/22/19 10:05 Protonix - PO 40 mg DAILY FLY Administration ASSESSMENT/PLAN: 59 yom with PMHx of HTN, reported cardiomyopathy (2003), gastritis, glaucoma, recent reported accident with ongoing left shoulder pain on oxycodone, comes with atypical chest pain. -Atypical chest pain, associated with shoulder movements -Rhabdomyolysis -Cannabis use -HTN -reported cardiomyopathy 2003 -Gastritis -Glacuoma -Recent reported accident with ongoing left shoulder pain on oxycodone Plan Chest symptoms atypical reports more with left shoulder movements. Suggests musculoskeletal etiology EKG non concerning, Tn neg x 3. No hypoxia, tachycardia or pleuritic symptoms or risk factors to raise suspicion for PE. Also symptoms resolved, stable hemodynamics, argue against dissection. Patient reports 2Decho/stress test with outpatient mower operator reportedly normal. Cardiology input noted, CTA chest ordered by cardiology. Low suspicion currently Check d-dimer. Advised ongoing hydration and hold statin till follow up CPK with PCP in 3-5 days, patient agrees to comply. Counseled on cannabis cessation. Dc later today if no new symptoms and work up neg Discussed with patient and nursing, all questions answered. Visit type - Emergency Visit Emergency Visit: Yes ED Registration Date: 05/21/19 Care time: The patient presented to the Emergency Department on the above date and was hospitalized for further evaluation of their emergent condition. - New Patient This patient is new to me today: Yes Date on this admission: 05/22/19 - Critical Care Critical Care patient: No - Discharge Referral Referred to [facility] No
[2019-05-22 12:13] VITALS: BP 120/65; PULSE 52; TEMP 98.5
--- NOTE | 2019-05-22 12:43 | DS ---
Physical Exam: SUBJECTIVE: Patient seen and examined, no further chest pain. Reported more of sharp symptoms associated with left shoulder pain. OBJECTIVE: Vital Signs Period Temp Pulse Resp BP Sys/Kearns Pulse Ox Last 24 Hr 97.5 F-99 F 48-89 16-20 101-120/61-78 98-99 PHYSICAL EXAM General: sitting in bed, no acute distress Neck: soft, supple, no JVd Chest: CTAB, no rales or wheezing, no chest wall tenderness noted Extremities: pain with ROM left shoulder but almost full ROM, no visible swelling/erythema or point tenderness noted, pos bowel sounds Abdomen:Soft, obese, NT Psych: pleasant, co-operative. LABS Laboratory Results - last 24 hr 05/21/19 05/21/19 05/21/19 19:43 19:43 19:43 WBC 5.2 RBC 4.49 Hgb 12.2 Hct 36.8 MCV 82.0 MCH 27.1 MCHC 33.0 RDW 15.9 D Plt Count 217 MPV 8.9 Absolute Neuts (auto) 2.9 Neutrophils % 54.6 Lymphocytes % 35.3 D Monocytes % 6.2 Eosinophils % 2.9 Basophils % 1.0 Nucleated RBC % 0 ESR PT with INR 12.00 INR 1.02 PTT (Actin FS) 24.9 L Sodium Potassium Chloride Carbon Dioxide Anion Gap BUN Creatinine Est GFR (CKD-EPI)AfAm Est GFR (CKD-EPI)NonAf Random Glucose Calcium Phosphorus Magnesium Total Bilirubin AST ALT Alkaline Phosphatase Creatine Kinase Cancelled Creatine Kinase Index CK-MB (CK-2) Troponin I Cancelled C-Reactive Protein Total Protein Albumin Triglycerides Cholesterol Total LDL Cholesterol HDL Cholesterol Urine Color Urine Appearance Urine pH Ur Specific [place] Urine Protein Urine Glucose (UA) Urine Ketones Urine Blood Urine Nitrite Urine Bilirubin Urine Urobilinogen Ur Leukocyte Esterase Opiates Screen Methadone Screen Barbiturate Screen Phencyclidine Screen Ur Amphetamines Screen MDMA (Ecstasy) Screen Benzodiazepines Screen Cocaine Screen U Marijuana (THC) Screen 05/21/19 05/21/19 05/21/19 19:43 20:31 22:30 WBC RBC Hgb Hct MCV MCH MCHC RDW Plt Count MPV Absolute Neuts (auto) Neutrophils % Lymphocytes % Monocytes % Eosinophils % Basophils % Nucleated RBC % ESR PT with INR INR PTT (Actin FS) Sodium Cancelled 139 Potassium Cancelled 4.0 Chloride Cancelled 107 Carbon Dioxide Cancelled 28 Anion Gap Cancelled 4 L BUN Cancelled 8.8 Creatinine Cancelled 1.1 Est GFR (CKD-EPI)AfAm Cancelled 84.12 Est GFR (CKD-EPI)NonAf Cancelled 72.58 Random Glucose Cancelled 99 Calcium Cancelled 8.7 Phosphorus Magnesium Total Bilirubin Cancelled 0.3 AST Cancelled 31 ALT Cancelled 29 Alkaline Phosphatase Cancelled 61 Creatine Kinase 1326 H 1131 H Creatine Kinase Index 0.1 0.1 CK-MB (CK-2) 1.8 1.4 Troponin I < 0.02 < 0.02 C-Reactive Protein Total Protein Cancelled 7.2 Albumin Cancelled 3.8 Triglycerides Cholesterol Total LDL Cholesterol HDL Cholesterol Urine Color Urine Appearance Urine pH Ur Specific [place] Urine Protein Urine Glucose (UA) Urine Ketones Urine Blood Urine Nitrite Urine Bilirubin Urine Urobilinogen Ur Leukocyte Esterase Opiates Screen Methadone Screen Barbiturate Screen Phencyclidine Screen Ur Amphetamines Screen MDMA (Ecstasy) Screen Benzodiazepines Screen Cocaine Screen U Marijuana (THC) Screen 05/22/19 05/22/19 05/22/19 04:50 06:00 06:00 WBC RBC Hgb Hct MCV MCH MCHC RDW Plt Count MPV Absolute Neuts (auto) Neutrophils % Lymphocytes % Monocytes % Eosinophils % Basophils % Nucleated RBC % ESR PT with INR INR PTT (Actin FS) Sodium 141 Potassium 4.1 Chloride 109 H Carbon Dioxide 29 Anion Gap 2 L BUN 8.5 Creatinine 1.1 Est GFR (CKD-EPI)AfAm 84.12 Est GFR (CKD-EPI)NonAf 72.58 Random Glucose 95 Calcium 8.4 L Phosphorus 3.2 Magnesium 2.3 Total Bilirubin 0.4 AST 30 ALT 29 Alkaline Phosphatase 64 Creatine Kinase 1091 H Creatine Kinase Index 0.1 CK-MB (CK-2) 1.4 Troponin I < 0.02 C-Reactive Protein < 0.3 Total Protein 7.2 Albumin 3.7 Triglycerides 78 Cholesterol 142 Total LDL Cholesterol 71 HDL Cholesterol 56 Urine Color Dk yellow Urine Appearance Clear Urine pH 7.0 Ur Specific [place] 1.035 Urine Protein Trace Urine Glucose (UA) Negative Urine Ketones Trace H Urine Blood Negative Urine Nitrite Negative Urine Bilirubin Negative Urine Urobilinogen 1.0 Ur Leukocyte Esterase Negative Opiates Screen Negative Methadone Screen Negative Barbiturate Screen Negative Phencyclidine Screen Negative Ur Amphetamines Screen Negative MDMA (Ecstasy) Screen Negative Benzodiazepines Screen Negative Cocaine Screen Negative U Marijuana (THC) Screen Positive A* 05/22/19 05/22/19 06:25 06:25 WBC 3.9 L RBC 4.23 Hgb 11.4 L Hct 34.6 L MCV 81.9 MCH 26.9 MCHC 32.8 RDW 15.8 Plt Count 171 D MPV 9.0 Absolute Neuts (auto) 1.8 Neutrophils % 45.1 Lymphocytes % 40.4 H Monocytes % 8.4 Eosinophils % 4.8 H Basophils % 1.3 Nucleated RBC % 0 ESR 7 PT with INR INR PTT (Actin FS) Sodium Potassium Chloride Carbon Dioxide Anion Gap BUN Creatinine Est GFR (CKD-EPI)AfAm Est GFR (CKD-EPI)NonAf Random Glucose Calcium Phosphorus Magnesium Total Bilirubin AST ALT Alkaline Phosphatase Creatine Kinase Creatine Kinase Index CK-MB (CK-2) Troponin I C-Reactive Protein Total Protein Albumin Triglycerides Cholesterol Total LDL Cholesterol HDL Cholesterol Urine Color Urine Appearance Urine pH Ur Specific [place] Urine Protein Urine Glucose (UA) Urine Ketones Urine Blood Urine Nitrite Urine Bilirubin Urine Urobilinogen Ur Leukocyte Esterase Opiates Screen Methadone Screen Barbiturate Screen Phencyclidine Screen Ur Amphetamines Screen MDMA (Ecstasy) Screen Benzodiazepines Screen Cocaine Screen U Marijuana (THC) Screen CTA chest : no acute process HOSPITAL COURSE: Date of Admission:05/21/19 Date of Discharge: 05/22/19 Minutes to complete discharge: 42 Discharge Summary Problems reviewed: Yes Reason For Visit: CHEST PAIN -Atypical chest pain, associated with shoulder movements -Rhabdomyolysis -Cannabis use -HTN -reported cardiomyopathy 2003 -Gastritis -Glacuoma -Recent reported accident with ongoing left shoulder pain on oxycodone Hospital Course: 59 yom with PMHx of HTN, reported cardiomyopathy (2003), gastritis, glaucoma, recent reported accident with ongoing left shoulder pain on oxycodone, comes with atypical chest pain. Patient reported sharp chest pain associated with left shoulder movements and also recent accident with ongoing left shoulder symptoms, for which is on oxycodone and planned for outpatient orthopedic follow up. His symptoms resolved. He was watched on telemetry and ACS was ruled out. He was noted with CPK In 1000s, his statin is being held. His CPK improved and he is advised follow up CPK with his PCP before resumption of his statin. He was seen by cardiology. He had CTA chest that was negative for concerns. He reported recent 2D echocardiogram and stress test within last 6 months with his hydraulic plumber that was reportedly unremarkable. His drug screen was positive for cannabis and cessation counseling was provided. He is currently asymptomatic and will be discharged in stable condition with outpatient monitoring as above. Condition: Stable - Instructions Diet, Activity, Other Instructions: You were admitted with chest pain. You were watched on monitor and heart attack was ruled out. You also had CT scan of your chest that was negative for any concerns. MEDICATION: Please do not take your cholesterol medication rosuvastatin till further instructed by your doctor next week Continue other medications as before INSTRUCTIONS: Please have follow up blood work: CPK with your doctor in 3-5 days to discuss resumption of your cholesterol medication Maintain adequate hydration till then. Also follow up your hydraulic plumber in 1-2 weeks Recommend cannabis cessation. FOLLOW UP: With Primary care physician in 3-5 days (Have blood work CPK then and discuss resumption of your cholesterol medication accordingly) With hydraulic plumber in 1-2 weeks Ongoing follow up with orthopedic for left shoulder symptoms. If you notice worsening, severe muscle aches of pain, dark or red urine, or any new concerns, please call 911 or come to the ED. Referrals: Oneil Garibay [Primary Care Provider] - Disposition: HOME - Home Medications Comprehensive Discharge Medication List: Ambulatory Orders Amlodipine Besylate [Norvasc -] 10 mg PO DAILY 07/06/17 Oxycodone HCl 30 mg PO Q4H PRN #90 tablet MDD 180mg 12/29/18 Pantoprazole Sodium [Protonix -] 40 mg PO DAILY #40 tablet.ec 12/29/18 Famotidine 20 mg PO DAILY 05/21/19 Latanoprost/Pf [Latanoprost 0.005% Eye Drop] 1 drop OP DAILY 05/21/19 Aspirin 81 mg PO DAILY 05/22/19 Ondansetron HCl [Zofran] 4 mg PO BID PRN 05/22/19 This patient is new to me today: Yes Date on this admission: 05/22/19 Emergency Visit: Yes ED Registration Date: 05/21/19 Care time: The patient presented to the Emergency Department on the above date and was hospitalized for further evaluation of their emergent condition. Critical Care patient: No - Discharge Referral Referred to [facility] No
[2019-05-22] MEDS ORDERED: LIDOCAINE PATCH REMOVAL MC ONE (18:00)
[2019-05-22] MEDS ORDERED: LATANOPROST 0.005% OPHTH SOLN 2.5ML BOTTLE OU SCH (22:00)
[2019-05-23] MEDS ORDERED: HEPARIN NA (PORCINE) 5,000 UNITS/ML 1ML VIAL SQ SCH (06:00)
[2019-05-23] MEDS ORDERED: ENOXAPARIN NA (PORCINE) 40 MG/0.4 ML DISP.SYRIN SQ SCH (10:00)
== END 2019-05-22 14:00 | disposition home or self-care (01) | DRG 203 ==
LOC: JER 18:39 → JERBED 22:34 → J4W 23:20
PROVIDERS: ADMIT Internal Medicine; ATTEND Hospitalist
DX: R07.89 Other chest pain (principal); F14.20 Cocaine dependence, uncomplicated; I42.8 Other cardiomyopathies; M62.82 Rhabdomyolysis; I10 Essential (primary) hypertension; B19.20 Unspecified viral hepatitis C without hepatic coma; K21.9 Gastro-esophageal reflux disease without esophagitis; F17.210 Nicotine dependence, cigarettes, uncomplicated; M54.5 Low back pain; K29.60 Other gastritis without bleeding; H40.9 Unspecified glaucoma; E78.5 Hyperlipidemia, unspecified; F32.9 Major depressive disorder, single episode, unspecified
CPT/HCPCS: 36415; 71045-TC-FY; 71046-TC-FY; 71275-TC; 80053; 80061; 80307; 81003; 82550; 82553; 83721; 83735; 84100; 84484; 85025; 85379; 85610; 85651; 85730; 86140; 93005; 93010; 99285-25; C1887; Q9967

== ENCOUNTER 2019-08-30 15:41 | Emergency (ER) | payer OTHER ==
[2019-08-30] MEDS ORDERED: DEXAMETHASONE LIQUID 0.5 MG/5 ML PO ONE (15:51)
--- NOTE | 2019-08-30 15:51 | PDOC ---
Rapid Medical Evaluation Time Seen by Provider: 08/30/19 15:48 Medical Evaluation: Allergies Allergy/AdvReac Type Severity Reaction Status Date / Time aspirin Allergy Mild nose bleeds Verified 05/21/19 18:43 ibuprofen Allergy Mild NOSE BLEEDS Verified 05/21/19 18:43 NSAIDS (Non-Steroidal Allergy Mild NOSE BLEEDS Verified 05/21/19 18:43 Anti-Inflamma 08/30/19 15:48 Pt presents for chest pain and coughing x1 day. His has similar symptoms and is also being seen. Exam: scattered expiratory wheeze Orders: EKG, CXR, meds Pt to proceed to the ER for further evaluation Discharge Disposition - Diagnosis Cough - Referrals - Patient Instructions - Post Discharge Activity
[2019-08-30 15:52] VITALS: BP 123/67; PULSE 86; TEMP 99.1; BMI 27.3
[2019-08-30] MEDS ORDERED: DEXAMETHASONE SOD PHOSPHATE 10 MG/1 ML VIAL ONE (15:55)
[2019-08-30] MEDS: ALBUTEROL SO4 2.5/IPRATROPIUM 0.5 INH SOL 3 ML VIAL.NEB. NEB SCH ×3 (16:06→16:35)
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
--- NOTE | 2019-08-31 11:23 | EKG ---
Test Reason : Blood Pressure : / mmHG Vent. Rate : 087 BPM Atrial Rate : 087 BPM P-R Int : 134 ms QRS Dur : 094 ms QT Int : 352 ms P-R-T Axes : 070 042 050 degrees QTc Int : 423 ms NORMAL SINUS RHYTHM LEFT ATRIAL ENLARGEMENT LEFT VENTRICULAR HYPERTROPHY ABNORMAL ECG Confirmed by MD ION, MILAD ([id number]) on 08/31/2019 11:22:59 AM Referred By: Confirmed By:MILAD LEMON MD
== END 2019-08-30 16:57 | disposition home or self-care (01) ==
LOC: JERFT 15:41
PROC: 3E0F7GC Introduction of Other Therapeutic Substance into Respiratory Tract, Via Natural or Artificial Opening (ICD-10-PCS; principal; 2019-08-30)
DX: J45.909 Unspecified asthma, uncomplicated (principal); I10 Essential (primary) hypertension; B18.2 Chronic viral hepatitis C; Z98.61 Coronary angioplasty status; Z86.79 Personal history of other diseases of the circulatory system
CPT/HCPCS: 71046-TC-FY; 93005; 93010; 94640; 99284-25

== ENCOUNTER 2020-02-09 17:06 | Emergency (ER) | payer OTHER ==
[2020-02-09 17:17] VITALS: BMI 28.3
[2020-02-09] MEDS ORDERED: PANTOPRAZOLE SODIUM 40 MG VIAL IVPUSH ONE (17:17)
[2020-02-09] MEDS ORDERED: ONDANSETRON 4 MG/2 ML VIAL IVPUSH ONE (17:17)
--- NOTE | 2020-02-09 17:17 | PDOC ---
Rapid Medical Evaluation Time Seen by Provider: 02/09/20 17:11 Medical Evaluation: 02/09/20 17:13 59 year old male pmhx of GERD, cardiomyopathy, HTN, HEP C (treated) presenting with epigastric pain radiating to chest. Brash water taste in mouth and nauseous in ED. Scheduled for endoscopy and colonscopy in February. PE: Plan: ACS r/o vs GERD Labs Zofran Protonix Maalox Pt to precede to main ED for further treatment and care
[2020-02-09] MEDS ORDERED: MAG HYDROX/AL HYDROX/SIMETH 30 ML UNIT-DOSE CUP PO ONE (17:18)
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
[2020-02-09] MEDS ORDERED: MAG HYDROX/AL HYDROX/SIMETH 30 ML UNIT-DOSE CUP ONE (18:33)
[2020-02-09] MEDS ORDERED: PANTOPRAZOLE SODIUM 40 MG VIAL ONE (18:34)
[2020-02-09 19:22] LABS: EOS % 1.3 % (0-4.5); HEMATOCRIT 40.7 % (35.4-49); HEMOGLOBIN 13.3 GM/dL (11.7-16.9); LYMPH % 29.1 % (8-40); MCH 28.1 pg (25.7-33.7); MCHC 32.6 g/dl (32.0-35.9); MEAN CELL VOLUME 86.2 fl (80-96); MEAN PLT VOLUME 9.3 fl (7.5-11.1); MONO % 6.8 % (3.8-10.2); NEUT % 61.8 % (42.8-82.8); PLATELET COUNT 215 K/MM3 (134-434); RBC 4.72 M/mm3 (4.00-5.60); RDW 14.1 % (11.9-15.9)
[2020-02-09 19:27] LABS: INR 1.08 (0.83-1.09); PROTHROMBIN TIME (PATIENT) 12.7 SEC (9.7-13.0)
[2020-02-09] MEDS ORDERED: LACTATED RINGERS SOLUTION 1000 ML INFUS.BAG IV ONE (19:47)
[2020-02-09 19:50] LABS: ALBUMIN 4.3 g/dl (3.4-5.0); ALK PHOS 66 U/L (45-117); ANION GAP 8 MMOL/L (8-16); BLOOD UREA NITROGEN 9.8 mg/dL (7-18); CALCIUM 9.6 mg/dL (8.5-10.1); CHLORIDE 107 mmol/L (98-107); CO2 26 mmol/L (21-32); CREATININE 1.2 mg/dL (0.55-1.3); GLUCOSE,RANDOM 97 mg/dL (74-106); LIPASE 38 U/L (73-393); N-TERMINAL BNP 34.4 pg/ml (5-125); POTASSIUM 4.5 mmol/L (3.5-5.1); SGOT/AST 30 U/L (15-37); SGPT/ALT 24 U/L (13-61); SODIUM 141 mmol/L (136-145); TOT PROT 8.2 g/dl (6.4-8.2)
[2020-02-09 22:40] LABS: VENOUS BASE EXCESS -2.1 mmol/L (-2-2); VENOUS O2 SATURATION 98.9 % (70-80); VENOUS PCO2 36.6 mmHg (38-52); VENOUS PH 7.401 (7.310-7.410)
[2020-02-09 23:43] VITALS: BP 138/73; PULSE 49; TEMP 97.6
--- NOTE | 2020-02-15 09:11 | EKG ---
Test Reason : Blood Pressure : / mmHG Vent. Rate : 048 BPM Atrial Rate : 048 BPM P-R Int : 142 ms QRS Dur : 092 ms QT Int : 402 ms P-R-T Axes : 035 047 051 degrees QTc Int : 359 ms marked SINUS BRADYCARDIA OTHERWISE NORMAL ECG NO PREVIOUS ECGS AVAILABLE Confirmed by Geovanni Gutierres ([id number]) on 02/15/2020 9:10:36 AM Referred By: Confirmed By:Geovanni Gutierres
== END 2020-02-09 23:30 | disposition home or self-care (01) ==
LOC: JER 17:06 → MERGE 17:06 → JER 23:30
PROC: 3E033GC Introduction of Other Therapeutic Substance into Peripheral Vein, Percutaneous Approach (ICD-10-PCS; principal; 2020-02-09)
DX: R10.9 Unspecified abdominal pain (principal)
CPT/HCPCS: 36415; 74177-TC; 80053; 82550; 82553; 82803; 83605; 83690; 83880; 84484; 85025; 85610; 93005; 93010; 99285-25; Q9967

== ENCOUNTER 2020-07-22 09:44 | Emergency (ER) | payer OTHER ==
[2020-07-22 10:00] VITALS: BP 162/79; PULSE 66; TEMP 97.2; BMI 27.2
[2020-07-22 14:54] LABS: BASO % 0.9 % (0-2.0); HEMATOCRIT 39.1 % (35.4-49); HEMOGLOBIN 12.8 GM/dL (11.7-16.9); MCH 28.6 pg (25.7-33.7); MCHC 32.8 g/dl (32.0-35.9); MEAN CELL VOLUME 87.3 fl (80-96); MEAN PLT VOLUME 10.5 fl (7.5-11.1); MONO % 7.1 % (3.8-10.2); PLATELET COUNT 179 K/MM3 (134-434); RBC 4.48 M/mm3 (4.00-5.60); RDW 13.5 % (11.9-15.9); WHITE BLOOD COUNT 4.2 K/mm3 (4.0-10.0)
[2020-07-22 15:12] LABS: CHLORIDE 110 mmol/L (98-107); SODIUM 142 mmol/L (136-145)
[2020-07-22 15:18] LABS: ANION GAP 8 MMOL/L (8-16); CALCIUM 8.7 mg/dL (8.5-10.1); CO2 24 mmol/L (21-32); GLUCOSE,RANDOM 77 mg/dL (74-106)
[2020-07-22 15:19] LABS: BLOOD UREA NITROGEN 7.8 mg/dL (7-18)
[2020-07-22 15:22] LABS: SGOT/AST 13 U/L (15-37); SGPT/ALT 15 U/L (13-61)
[2020-07-22 15:23] LABS: BILIRUBIN,TOTAL 0.7 mg/dL (0.2-1)
[2020-07-22 15:24] LABS: ALK PHOS 62 U/L (45-117); TOT PROT 7.4 g/dl (6.4-8.2)
[2020-07-22 16:03] LABS: ANISOCYTOSIS 0; MACROCYTOSIS 0; PLATELET ESTIMATE NORMAL
== END 2020-07-22 16:04 | disposition home or self-care (01) ==
LOC: JER 09:44
DX: R00.2 Palpitations (principal); Z11.52 Encounter for screening for COVID-19
CPT/HCPCS: 36415; 71046-TC-FY; 80053; 82550; 82553; 84484; 85025; 93005; 93010; 99284-25; C9803; U0003

== ENCOUNTER 2021-03-13 12:27 | Observation (INO) | payer OTHER ==
[2021-03-13 13:04] VITALS: BMI 28.8
[2021-03-13] MEDS ORDERED: MECLIZINE HCL 25 MG TABLET (FP) PO ONE (13:27)
[2021-03-13] MEDS ORDERED: MECLIZINE HCL 25 MG TABLET (FP) ONE (14:03)
[2021-03-13 14:29] LABS: EOS % 1.1 % (0-4.5); HEMATOCRIT 37.6 % (35.4-49); HEMOGLOBIN 12.6 GM/dL (11.7-16.9); LYMPH % 31.2 % (8-40); MCH 28.8 pg (25.7-33.7); MCHC 33.5 g/dl (32.0-35.9); MONO % 6.8 % (3.8-10.2); NEUT % 59.9 % (42.8-82.8); PLATELET COUNT 188 10^3/uL (134-434); RBC 4.38 M/mm3 (4.00-5.60); RDW 14.3 % (11.9-15.9); WHITE BLOOD COUNT 5.3 K/mm3 (4.0-10.0)
[2021-03-13 14:50] LABS: CHLORIDE 107 mmol/L (98-107); SODIUM 137 mmol/L (136-145)
[2021-03-13 14:53] LABS: ALBUMIN 3.8 g/dl (3.4-5.0); ANION GAP 4 MMOL/L (8-16); BLOOD UREA NITROGEN 9.3 mg/dL (7-18); CO2 27 mmol/L (21-32); GLUCOSE,RANDOM 94 mg/dL (74-106)
[2021-03-13 14:56] LABS: CREATININE 1.1 mg/dL (0.55-1.3); SGOT/AST 9 U/L (15-37); SGPT/ALT 17 U/L (13-61)
[2021-03-13 14:57] LABS: TOT PROT 7.5 g/dl (6.4-8.2)
[2021-03-13 14:58] LABS: ALK PHOS 54 U/L (45-117)
[2021-03-13 15:22] LABS: BILIRUBIN,TOTAL 0.4 mg/dL (0.2-1)
[2021-03-13] MEDS ORDERED: ALBUTEROL SO4 HFA INHALER IH PRN (20:26)
[2021-03-13] MEDS: MECLIZINE HCL 25 MG TABLET (FP) PO PRN (20:41)
[2021-03-14 07:38] LABS: HEMATOCRIT 39.3 % (35.4-49); HEMOGLOBIN 13.3 GM/dL (11.7-16.9); MCH 28.9 pg (25.7-33.7); MCHC 33.9 g/dl (32.0-35.9); MEAN CELL VOLUME 85.3 fl (80-96); MEAN PLT VOLUME 9.1 fl (7.5-11.1); PLATELET COUNT 178 10^3/uL (134-434); RDW 14.3 % (11.9-15.9); WHITE BLOOD COUNT 5.3 K/mm3 (4.0-10.0)
[2021-03-14 07:50] LABS: ALBUMIN 3.7 g/dl (3.4-5.0); BLOOD UREA NITROGEN 8.4 mg/dL (7-18); CALCIUM 8.9 mg/dL (8.5-10.1); MAGNESIUM 2.2 mg/dL (1.8-2.4)
[2021-03-14 07:53] LABS: CREATININE 0.9 mg/dL (0.55-1.3)
[2021-03-14 07:55] LABS: TOT PROT 7.4 g/dl (6.4-8.2)
[2021-03-14 12:24] LABS: N-TERMINAL BNP 103.8 pg/ml (5-125)
[2021-03-14] MEDS ORDERED: LORazepam 1 MG TABLET PO SCH (17:44)
[2021-03-14] MEDS ORDERED: amLODIPine BESYLATE 2.5 MG TABLET (FP) PO ONE (18:05)
[2021-03-14] MEDS ORDERED: PANTOPRAZOLE 40 MG TABLET PO ONE (18:05)
[2021-03-14] MEDS ORDERED: ATORVASTATIN CA 40 MG TABLET (FP) PO SCH (22:00)
[2021-03-15] MEDS: MECLIZINE HCL 25 MG TABLET (FP) PO PRN (09:56)
[2021-03-15] MEDS ORDERED: MECLIZINE HCL 25 MG TABLET (FP) PO SCH (12:00)
[2021-03-15 14:52] VITALS: BP 152/85; PULSE 56; TEMP 98.1
[2021-03-15] MEDS: ACETAMINOPHEN 325 MG TABLET (FP) PO ONE ×2 (16:09→16:45)
[2021-03-15] MEDS ORDERED: amLODIPine BESYLATE 5 MG TABLET (FP) PO ONE (16:43)
== END 2021-03-15 18:33 | disposition home or self-care (01) ==
LOC: JER 12:27 → JERBED 13:21 → J4W 20:25
PROVIDERS: ADMIT Internal Medicine; ATTEND Nurse Practitioner Family
DX: R55 Syncope and collapse (principal); J44.9 Chronic obstructive pulmonary disease, unspecified; I11.0 Hypertensive heart disease with heart failure; I42.9 Cardiomyopathy, unspecified; E63.8 Other specified nutritional deficiencies; B19.20 Unspecified viral hepatitis C without hepatic coma; T14.8XXA Other injury of unspecified body region, initial encounter; R00.1 Bradycardia, unspecified; K29.70 Gastritis, unspecified, without bleeding; H40.9 Unspecified glaucoma; I50.30 Unspecified diastolic (congestive) heart failure; M19.90 Unspecified osteoarthritis, unspecified site; Z88.8 Allergy status to other drugs, medicaments and biological substances; Z96.659 Presence of unspecified artificial knee joint
CPT/HCPCS: 36415; 70450-TC; 70551-TC; 71045-TC-FY; 80053; 80061; 82550; 82553; 83036; 83735; 83880; 84436; 84443; 84484; 85025; 85027; 86038; 86850; 86900; 86901; 93005; 93010; 93306-TC; 93880-TC; 97116-GP; 97162-GP; 99285-25; C9803; G0378; U0003; U0005

== ENCOUNTER 2021-10-25 21:50 | Emergency (ER) | payer OTHER ==
[2021-10-25 22:47] VITALS: BP 102/72; PULSE 75; TEMP 98.2; BMI 28.2
[2021-10-25 23:42] LABS: BASO % 1.1 % (0-2.0); EOS % 1.6 % (0-4.5); HEMATOCRIT 36.6 % (35.4-49); LYMPH % 29.6 % (8-40); MCH 28.1 pg (25.7-33.7); MCHC 32.9 g/dl (32.0-35.9); MEAN CELL VOLUME 85.5 fl (80-96); MEAN PLT VOLUME 8.7 fl (7.5-11.1); NEUT % 59.7 % (42.8-82.8); PLATELET COUNT 205 10^3/uL (134-434); RBC 4.28 M/mm3 (4.00-5.60); RDW 13.2 % (11.9-15.9); WHITE BLOOD COUNT 5.7 K/mm3 (4.0-10.0)
[2021-10-26 00:06] LABS: BLOOD UREA NITROGEN 7.8 mg/dL (7-18)
[2021-10-26 00:10] LABS: BILIRUBIN,TOTAL 0.5 mg/dL (0.2-1); TOT PROT 7.4 g/dl (6.4-8.2)
== END 2021-10-26 01:47 | disposition home or self-care (01) ==
LOC: JER 21:50
DX: R00.2 Palpitations (principal)
CPT/HCPCS: 36415; 80053; 84484; 85025; 93005; 93010; 99284-25

== ENCOUNTER 2021-11-30 12:15 | Emergency (ER) | payer OTHER ==
[2021-11-30 12:21] VITALS: BP 122/66; PULSE 80; TEMP 98.3; BMI 28.2
[2021-11-30] MEDS ORDERED: SODIUM CHLORIDE 0.9% 500 ML INFUS.BAG IV ONE (13:14)
[2021-11-30] MEDS ORDERED: ACETAMINOPHEN 1000 MG/100 ML BAG IVPB ONE (13:14)
[2021-11-30] MEDS ORDERED: MAG HYDROX/AL HYDROX/SIMETH 30 ML UNIT-DOSE CUP PO ONE (13:14)
[2021-11-30] MEDS ORDERED: FAMOTIDINE 20 MG/50 ML IVPB 20 MG/50 ML MG IVPB ONE ×2 (13:14→13:36)
[2021-11-30] MEDS ORDERED: CALAMINE 8% TOPICAL LOTION 177 ML BOTTLE TP ONE (13:15)
[2021-11-30] MEDS ORDERED: ONDANSETRON 4 MG/2 ML VIAL IVPB ONE (13:15)
[2021-11-30] MEDS ORDERED: ACETAMINOPHEN INJECTION 100 ML IVPB ONE (13:36)
[2021-11-30] MEDS ORDERED: ONDANSETRON 4 MG/2 ML VIAL ONE (13:36)
[2021-11-30] MEDS ORDERED: MAG HYDROX/AL HYDROX/SIMETH 30 ML UNIT-DOSE CUP ONE (13:36)
[2021-11-30 13:40] LABS: EOS % 0.8 % (0-4.5); LYMPH % 23.9 % (8-40); MCHC 32.4 g/dl (32.0-35.9); MEAN CELL VOLUME 86.6 fl (80-96); MEAN PLT VOLUME 8.3 fl (7.5-11.1); MONO % 5.9 % (3.8-10.2); NEUT % 68.4 % (42.8-82.8); PLATELET COUNT 192 10^3/uL (134-434); RBC 3.93 M/mm3 (4.00-5.60); RDW 13.1 % (11.9-15.9); WHITE BLOOD COUNT 4.8 K/mm3 (4.0-10.0)
[2021-11-30 13:49] LABS: INR 1.08 (0.83-1.09); PROTHROMBIN TIME (PATIENT) 12.4 SEC (9.7-13.0)
[2021-11-30 13:53] LABS: ACTIVATED PTT 31.5 SECONDS (25.2-36.5)
[2021-11-30 14:04] LABS: ALBUMIN 3.5 g/dl (3.4-5.0); CALCIUM 8.9 mg/dL (8.5-10.1)
[2021-11-30 14:05] LABS: MAGNESIUM 2.3 mg/dL (1.8-2.4)
[2021-11-30 14:08] LABS: PHOSPHOROUS 3.3 mg/dL (2.5-4.9)
[2021-11-30 14:09] LABS: BILIRUBIN,TOTAL 0.5 mg/dL (0.2-1); TOT PROT 6.7 g/dl (6.4-8.2)
[2021-11-30 15:17] LABS: BLOOD UREA NITROGEN 8.2 mg/dL (7-18)
[2021-11-30] MEDS ORDERED: morphine SULFATE 4 MG/ML VIAL IVPUSH ONE (16:30)
== END 2021-11-30 17:39 | disposition home or self-care (01) ==
LOC: JER 12:15
PROC: 3E033NZ Introduction of Analgesics, Hypnotics, Sedatives into Peripheral Vein, Percutaneous Approach (ICD-10-PCS; principal; 2021-11-30)
PROC: 3E033GC Introduction of Other Therapeutic Substance into Peripheral Vein, Percutaneous Approach (ICD-10-PCS; 2021-11-30)
PROC: 3E033GC Introduction of Other Therapeutic Substance into Peripheral Vein, Percutaneous Approach (ICD-10-PCS; 2021-11-30)
PROC: 3E033GC Introduction of Other Therapeutic Substance into Peripheral Vein, Percutaneous Approach (ICD-10-PCS; 2021-11-30)
DX: R10.84 Generalized abdominal pain (principal); R11.0 Nausea
CPT/HCPCS: 36415; 74176-TC; 80053; 83605; 83690; 83735; 84100; 84484; 85025; 85610; 85730; 93005; 93010; 99285-25

== ENCOUNTER 2021-12-21 05:44 | Emergency (ER) | payer OTHER ==
[2021-12-21 06:28] VITALS: BP 135/81; PULSE 76; TEMP 99.1; BMI 28.0
[2021-12-21] MEDS ORDERED: ACETAMINOPHEN 500 MG TABLET (FP) PO ONE (07:27)
== END 2021-12-21 07:38 | disposition left against medical advice (07) ==
LOC: JER 05:44
DX: R05.1 Acute cough (principal)
CPT/HCPCS: 93005; 93010; 99283-25

== ENCOUNTER 2022-11-24 17:55 | Emergency (ER) | payer OTHER ==
[2022-11-24 19:09] VITALS: BP 114/69; PULSE 77; RESP 18; TEMP 99.4; BMI 30.2
[2022-11-24] MEDS ORDERED: METOCLOPRAMIDE HCL INJECTION 10 MG/2 ML VIAL IVPUSH ONE (20:33)
[2022-11-24] MEDS ORDERED: SODIUM CHLORIDE 0.9% 500 ML INFUS.BAG IV ONE (20:33)
[2022-11-24] MEDS ORDERED: ACETAMINOPHEN 500 MG TABLET (FP) PO ONE (20:37)
[2022-11-24] MEDS ORDERED: METOCLOPRAMIDE HCL INJECTION 10 MG/2 ML VIAL ONE (20:59)
== END 2022-11-24 22:05 | disposition left against medical advice (07) ==
LOC: JER 17:55
DX: R11.2 Nausea with vomiting, unspecified (principal); R53.1 Weakness; R19.7 Diarrhea, unspecified; R51.9 Headache, unspecified
CPT/HCPCS: 71045-TC-FY; 99283-25

== ENCOUNTER 2023-09-16 10:59 | Emergency (ER) | payer OTHER ==
[2023-09-16 11:03] VITALS: BP 136/80; PULSE 84; RESP 16; TEMP 98.6; BMI 28.2
[2023-09-16] MEDS ORDERED: METHOCARBAMOL 500 MG TABLET ONE (14:01)
[2023-09-16] MEDS: METHOCARBAMOL 500 MG TABLET PO ONE (14:39)
[2023-09-16] MEDS: ACETAMINOPHEN WITH CODEINE 300MG/30MG TABLET PO ONE (14:40)
== END 2023-09-16 15:19 | disposition home or self-care (01) ==
LOC: JERFT 10:59
DX: M25.561 Pain in right knee (principal); M25.562 Pain in left knee; M25.552 Pain in left hip; M54.50 Low back pain, unspecified; W10.9XXA Fall (on) (from) unspecified stairs and steps, initial encounter
CPT/HCPCS: 72100-TC-FY; 72170-TC-FY; 73502-TC-LT-FY; 73562-TC-LT-FY; 73562-TC-RT-FY; 99284-25

== ENCOUNTER 2024-02-27 12:44 | Emergency (ER) | payer OTHER ==
[2024-02-27 13:32] VITALS: BP 107/70; PULSE 59; RESP 17; TEMP 98.2; BMI 28.2
[2024-02-27] MEDS ORDERED: ONDANSETRON 4 MG/2 ML VIAL ONE (15:03)
[2024-02-27] MEDS ORDERED: ACETAMINOPHEN INJECTION 100 ML IVPB ONE (15:03)
[2024-02-27] MEDS: ONDANSETRON 4 MG/2 ML VIAL IVPUSH ONE (15:18)
[2024-02-27] MEDS: SODIUM CHLORIDE 1,000 ML IV STA (15:18)
[2024-02-27] MEDS: ACETAMINOPHEN 1000 MG/100 ML BAG IVPB ONE (15:19)
[2024-02-27] MEDS ORDERED: ONDANSETRON *ODT* 4 MG TABLET ONE (15:27)
[2024-02-27] MEDS: ONDANSETRON *ODT* 4 MG TABLET SL ONE (15:29)
[2024-02-27 15:31] LABS: HEMATOCRIT 37.9 % (35.4-49); HEMOGLOBIN 12.4 GM/dL (11.7-16.9); LYMPH % 30.2 % (8-40); MCH 28.6 pg (25.7-33.7); MCHC 32.7 g/dl (32.0-35.9); MEAN CELL VOLUME 87.5 fl (80-96); MEAN PLT VOLUME 9.2 fl (7.5-11.1); NEUT % 59.8 % (42.8-82.8); PLATELET COUNT 180 10^3/uL (134-434); RBC 4.32 M/mm3 (4.00-5.60); RDW 13.5 % (11.9-15.9); WHITE BLOOD COUNT 5.6 K/mm3 (4.0-10.0)
[2024-02-27 15:45] LABS: INR 1.02 (0.83-1.09); PROTHROMBIN TIME (PATIENT) 11.7 SEC (9.7-13.0)
[2024-02-27 15:52] LABS: POTASSIUM 4.1 mmol/L (3.5-5.1)
[2024-02-27 15:55] LABS: ALBUMIN 4.1 g/dl (3.4-5.0); BLOOD UREA NITROGEN 7.2 mg/dL (7-18); CALCIUM 9.3 mg/dL (8.5-10.1)
[2024-02-27 15:58] LABS: CREATININE 0.9 mg/dL (0.55-1.3)
[2024-02-27 16:00] LABS: BILIRUBIN,TOTAL 0.7 mg/dL (0.2-1); TOT PROT 7.6 g/dl (6.4-8.2)
[2024-02-27] MEDS ORDERED: ACETAMINOPHEN 500 MG TABLET (FP) ONE (16:32)
[2024-02-27] MEDS: ACETAMINOPHEN 500 MG TABLET (FP) PO ONE (16:45)
== END 2024-02-27 20:33 | disposition home or self-care (01) ==
LOC: JER 12:44
DX: N20.0 Calculus of kidney (principal); R10.12 Left upper quadrant pain; R10.31 Right lower quadrant pain; R11.10 Vomiting, unspecified; Z20.822 Contact with and (suspected) exposure to COVID-19
CPT/HCPCS: 0241U-QW; 36415; 74176-TC; 80053; 83605; 83690; 84484; 85025; 85610; 85730; 93005; 93010; 99285-25; Q0162

== ENCOUNTER 2024-03-02 12:52 | Emergency (ER) | payer OTHER ==
[2024-03-02 13:33] VITALS: BMI 27.7
[2024-03-02 13:50] LABS: PH,URINE 5.5 (5.0-8.0); URINE APPEARANCE CLEAR; URINE BILIRUBIN NEGATIVE (NEGATIVE); URINE COLOR DK YELLOW; URINE GLUCOSE (UA) NEGATIVE (NEGATIVE); URINE KETONE TRACE (NEGATIVE); URINE LEUK ESTERASE NEGATIVE (NEGATIVE); URINE NITRITE NEGATIVE (NEGATIVE); URINE PROTEIN TRACE (NEGATIVE); URINE UROBILINOGEN 0.2 mg/dL (0.2-1.0)
[2024-03-02] MEDS ORDERED: METHOCARBAMOL 500 MG TABLET ONE (13:51)
[2024-03-02] MEDS ORDERED: ACETAMINOPHEN 325 MG TABLET (FP) ONE (13:52)
[2024-03-02] MEDS ORDERED: LIDOCAINE 4% PATCH TP ONE (13:52)
[2024-03-02] MEDS: METHOCARBAMOL 750 MG TAB PO ONE (14:14)
[2024-03-02] MEDS: LIDOCAINE 4% PATCH TP ONE (14:14)
[2024-03-02] MEDS: ACETAMINOPHEN 500 MG TABLET (FP) PO ONE ×2 (14:14→14:19)
[2024-03-02 14:19] LABS: EOS % 0.8 % (0-4.5); HEMATOCRIT 38.3 % (35.4-49); HEMOGLOBIN 12.8 GM/dL (11.7-16.9); LYMPH % 25.3 % (8-40); MCH 28.8 pg (25.7-33.7); MCHC 33.4 g/dl (32.0-35.9); MEAN CELL VOLUME 86.2 fl (80-96); MEAN PLT VOLUME 8.6 fl (7.5-11.1); MONO % 6.8 % (3.8-10.2); NEUT % 66.1 % (42.8-82.8); PLATELET COUNT 185 10^3/uL (134-434); RBC 4.45 M/mm3 (4.00-5.60); RDW 13.4 % (11.9-15.9); WHITE BLOOD COUNT 4.6 K/mm3 (4.0-10.0)
[2024-03-02 14:40] LABS: POTASSIUM 3.8 mmol/L (3.5-5.1)
[2024-03-02 14:44] LABS: ALBUMIN 3.9 g/dl (3.4-5.0); BLOOD UREA NITROGEN 6.9 mg/dL (7-18); CALCIUM 9.1 mg/dL (8.5-10.1)
[2024-03-02 14:47] LABS: PHOSPHOROUS 3.3 mg/dL (2.5-4.9)
[2024-03-02 14:49] LABS: BILIRUBIN,TOTAL 0.8 mg/dL (0.2-1); TOT PROT 7.2 g/dl (6.4-8.2)
[2024-03-02 15:11] VITALS: BP 131/79; PULSE 62; RESP 16; TEMP 98.1
== END 2024-03-02 15:12 | disposition home or self-care (01) ==
LOC: JER 12:52
DX: M54.2 Cervicalgia (principal); R63.0 Anorexia; R53.1 Weakness; Z20.822 Contact with and (suspected) exposure to COVID-19
CPT/HCPCS: 0241U-QW; 36415; 80053; 81003; 83735; 84100; 84443; 84484; 85025; 85651; 86140; 87086; 93005; 93010; 99284-25

== ENCOUNTER 2024-03-17 14:39 | Observation (INO) | payer OTHER ==
[2024-03-17 18:26] LABS: BASO % 0.8 % (0-2.0); EOS % 1.6 % (0-4.5); HEMATOCRIT 36.5 % (35.4-49); HEMOGLOBIN 11.9 GM/dL (11.7-16.9); LYMPH % 20.1 % (8-40); MCH 28.4 pg (25.7-33.7); MCHC 32.6 g/dl (32.0-35.9); MEAN PLT VOLUME 9.2 fl (7.5-11.1); MONO % 7.8 % (3.8-10.2); NEUT % 69.7 % (42.8-82.8); PLATELET COUNT 222 10^3/uL (134-434); RDW 13.1 % (11.9-15.9); WHITE BLOOD COUNT 5.2 K/mm3 (4.0-10.0)
[2024-03-17 18:40] LABS: INR 1.09 (0.83-1.09); PROTHROMBIN TIME (PATIENT) 12.3 SEC (9.7-13.0)
[2024-03-17 18:43] LABS: ACTIVATED PTT 33.6 SECONDS (25.2-36.5)
[2024-03-17 18:51] LABS: POTASSIUM 3.4 mmol/L (3.5-5.1)
[2024-03-17 18:54] LABS: ALBUMIN 3.7 g/dl (3.4-5.0); BLOOD UREA NITROGEN 5.8 mg/dL (7-18)
[2024-03-17 18:57] LABS: CREATININE 0.9 mg/dL (0.55-1.3)
[2024-03-17 18:58] LABS: BILIRUBIN,TOTAL 0.7 mg/dL (0.2-1); TOT PROT 7.2 g/dl (6.4-8.2)
[2024-03-17 19:40] LABS: HIV INTERPRETATION NEGATIVE (NEGATIVE)
[2024-03-17] MEDS ORDERED: ACETAMINOPHEN INJECTION 100 ML ONE (23:35)
[2024-03-17] MEDS: ACETAMINOPHEN 1000 MG/100 ML BAG IVPB ONE (23:47)
[2024-03-18] MEDS ORDERED: ACETAMINOPHEN 1000 MG/100 ML BAG IVPB PRN (04:22)
[2024-03-18] MEDS: LIDOCAINE 4% PATCH TP ONE (04:25)
[2024-03-18] MEDS: ACETAMINOPHEN 1000 MG/100 ML BAG IVPB ONE (04:25)
[2024-03-18] MEDS ORDERED: LIDOCAINE 4% PATCH TP ONE (04:26)
[2024-03-18] MEDS ORDERED: POTASSIUM CHLORIDE TABS 20 MEQ TABLET.ER (FP) PO ONE (04:35)
[2024-03-18] MEDS: POTASSIUM CHLORIDE TABS 20 MEQ TABLET.ER (FP) PO ONE (04:44)
[2024-03-18] MEDS ORDERED: ALBUTEROL SO4 HFA INHALER IH PRN (05:16)
[2024-03-18 06:22] VITALS: BMI 27.3
[2024-03-18 08:11] LABS: EOS % 4.1 % (0-4.5); HEMATOCRIT 37.7 % (35.4-49); HEMOGLOBIN 12.3 GM/dL (11.7-16.9); LYMPH % 22.8 % (8-40); MCH 28.5 pg (25.7-33.7); MCHC 32.8 g/dl (32.0-35.9); MEAN CELL VOLUME 86.9 fl (80-96); MEAN PLT VOLUME 8.7 fl (7.5-11.1); MONO % 9.1 % (3.8-10.2); PLATELET COUNT 190 10^3/uL (134-434); RBC 4.33 M/mm3 (4.00-5.60); RDW 12.4 % (11.9-15.9); WHITE BLOOD COUNT 5.1 K/mm3 (4.0-10.0)
[2024-03-18 08:29] LABS: POTASSIUM 3.8 mmol/L (3.5-5.1)
[2024-03-18 08:32] LABS: ALBUMIN 3.8 g/dl (3.4-5.0); CALCIUM 9.2 mg/dL (8.5-10.1)
[2024-03-18 08:33] LABS: BLOOD UREA NITROGEN 5.7 mg/dL (7-18); MAGNESIUM 2.1 mg/dL (1.8-2.4)
[2024-03-18 08:36] LABS: CREATININE 0.8 mg/dL (0.55-1.3); PHOSPHOROUS 3.3 mg/dL (2.5-4.9)
[2024-03-18 08:37] LABS: BILIRUBIN,TOTAL 0.7 mg/dL (0.2-1); TOT PROT 7.2 g/dl (6.4-8.2)
[2024-03-18] MEDS: FAMOTIDINE 20 MG TABLET PO SCH (09:33)
[2024-03-18] MEDS: amLODIPine BESYLATE 5 MG TABLET (FP) PO SCH (09:33)
[2024-03-18] MEDS: ENOXAPARIN NA (PORCINE) 40 MG/0.4 ML DISP.SYRIN SQ SCH (09:33)
[2024-03-18 09:35] LABS: EPI CELLS 3 /uL (0-25.1); HYALINE CASTS 0 /uL (0-3.1); PH,URINE 5.5 (5.0-8.0); URINE APPEARANCE CLEAR; URINE BACTERIA 8 /uL (0-1359); URINE BILIRUBIN NEGATIVE (NEGATIVE); URINE COLOR YELLOW; URINE GLUCOSE (UA) NEGATIVE (NEGATIVE); URINE KETONE NEGATIVE (NEGATIVE); URINE LEUK ESTERASE NEGATIVE (NEGATIVE); URINE NITRITE NEGATIVE (NEGATIVE); URINE PROTEIN 1+ (NEGATIVE); URINE RBC 16 /uL (0-23.9); URINE WBC 12 /uL (0-25.8)
[2024-03-18 11:58] LABS: METHADONE, UR NEGATIVE (NEGATIVE); OPIATES, URI NEGATIVE (NEGATIVE); URINE BARBITURATES NEGATIVE (NEGATIVE); URINE BENZODIAZEPINES NEGATIVE (NEGATIVE)
[2024-03-18 11:59] LABS: COCAINE, UR NEGATIVE (NEGATIVE); PHENCYCLIDINE,URINE NEGATIVE (NEGATIVE)
[2024-03-18 12:11] LABS: URINE AMPHETAMINES NEGATIVE (NEGATIVE)
[2024-03-18] MEDS: LIDOCAINE 4% PATCH TP SCH (12:49)
[2024-03-18] MEDS: predniSONE 20 MG TABLET (UD) PO ONE (14:21)
[2024-03-18] MEDS: CYCLOBENZAPRINE HCL 10 MG TABLET (FP) PO SCH (14:21)
[2024-03-18 14:42] VITALS: BP 136/80; PULSE 55; RESP 18; TEMP 98.2
[2024-03-18] MEDS ORDERED: LIDOCAINE PATCH REMOVAL MC SCH ×2 (22:00)
[2024-03-18] MEDS ORDERED: LATANOPROST 0.005% OPHTH SOLN 2.5ML BOTTLE OU SCH (22:00)
[2024-03-18] MEDS ORDERED: ATORVASTATIN CA 40 MG TABLET (FP) PO SCH (22:00)
== END 2024-03-18 17:47 | disposition home or self-care (01) ==
LOC: JER 14:39 → UNDOADMOB 03-18 03:14 → JERBED 03-18 03:14 → INTOOBSV 03-18 03:26 → OBSVTOIN 03-18 03:26 → J4S 03-18 05:12 → JERBED 03-18 05:12 → J4S 03-18 11:58 → JERBED 03-18 11:58
PROVIDERS: ADMIT Internal Medicine; ATTEND Internal Medicine
PROC: 3E033NZ Introduction of Analgesics, Hypnotics, Sedatives into Peripheral Vein, Percutaneous Approach (ICD-10-PCS; principal; 2024-03-18)
DX: R07.9 Chest pain, unspecified (principal); I10 Essential (primary) hypertension; E87.6 Hypokalemia; Z86.19 Personal history of other infectious and parasitic diseases; E78.5 Hyperlipidemia, unspecified; I50.30 Unspecified diastolic (congestive) heart failure; J44.9 Chronic obstructive pulmonary disease, unspecified; G89.29 Other chronic pain; M54.50 Low back pain, unspecified; K59.00 Constipation, unspecified; Z87.828 Personal history of other (healed) physical injury and trauma; M19.90 Unspecified osteoarthritis, unspecified site
CPT/HCPCS: 36415; 71045-TC-FY; 71275-TC; 80053; 80061; 80307; 81003; 83735; 84100; 84443; 84484; 85025; 85379; 85610; 85730; 86803; 87389; 87522; 93005; 93010; 93306-TC; 96374; 99285-25; G0378; J0131; Q9967

== ENCOUNTER 2024-12-18 06:27 | Emergency (ER) | payer OTHER ==
[2024-12-18 06:40] VITALS: RESP 18; BMI 28.2
[2024-12-18] MEDS ORDERED: ONDANSETRON 4 MG/2 ML VIAL ONE (08:03)
[2024-12-18] MEDS ORDERED: ACETAMINOPHEN INJECTION 100 ML ONE (08:03)
[2024-12-18] MEDS: ONDANSETRON 4 MG/2 ML VIAL IVPUSH ONE (08:05)
[2024-12-18] MEDS: ACETAMINOPHEN 1000 MG/100 ML BAG IVPB ONE (08:05)
[2024-12-18 08:07] LABS: HEMOGLOBIN 11.3 g/dL (13.7-17.5)
[2024-12-18 08:09] LABS: HEMATOCRIT 35.7 % (40.1-51.0); MCHC 31.7 g/dl (32.3-36.5); MEAN CELL VOLUME 87.7 fl (79.0-92.2); MEAN PLT VOLUME 11.2 fl (9.4-12.4); PLATELET COUNT 195 x10^3/uL (163-337); RDW 12.9 % (12.2-16.4)
[2024-12-18 08:26] LABS: POTASSIUM 3.9 mmol/L (3.5-5.1)
[2024-12-18 08:28] LABS: ALBUMIN 3.6 g/dl (3.4-5.0); CALCIUM 9.1 mg/dL (8.5-10.1)
[2024-12-18 08:32] LABS: BILIRUBIN,TOTAL 0.3 mg/dL (0.2-1)
[2024-12-18 08:33] LABS: TOT PROT 6.8 g/dl (6.4-8.2)
[2024-12-18 09:44] LABS: URINE APPEARANCE CLEAR; URINE BILIRUBIN NEGATIVE (NEGATIVE); URINE COLOR DK YELLOW; URINE GLUCOSE (UA) NEGATIVE (NEGATIVE); URINE KETONE NEGATIVE (NEGATIVE); URINE LEUK ESTERASE NEGATIVE (NEGATIVE); URINE NITRITE NEGATIVE (NEGATIVE); URINE PROTEIN NEGATIVE (NEGATIVE); URINE UROBILINOGEN 0.2 mg/dL (0.2-1.0)
[2024-12-18 09:45] LABS: INR 1.07 (0.83-1.09); PROTHROMBIN TIME (PATIENT) 11.8 SEC (9.7-13.0)
[2024-12-18 09:49] LABS: ACTIVATED PTT 32.2 SECONDS (25.2-36.5)
[2024-12-18 11:14] VITALS: BP 136/64; PULSE 59; TEMP 98.2
[2024-12-18 11:35] LABS: HIV INTERPRETATION NEGATIVE (NEGATIVE)
[2024-12-18 11:54] LABS: HCV DIAGNOSTIC IN-HOUSE W/RFLX REACTIVE (NONREACTIVE)
== END 2024-12-18 11:57 | disposition home or self-care (01) ==
LOC: JER 06:27
PROC: 3E033NZ Introduction of Analgesics, Hypnotics, Sedatives into Peripheral Vein, Percutaneous Approach (ICD-10-PCS; principal; 2024-12-18)
PROC: 3E033GC Introduction of Other Therapeutic Substance into Peripheral Vein, Percutaneous Approach (ICD-10-PCS; 2024-12-18)
DX: R10.84 Generalized abdominal pain (principal); G89.29 Other chronic pain; N50.82 Scrotal pain; R11.0 Nausea
CPT/HCPCS: 36415; 71045-TC-FY; 74177-TC; 76870-TC; 80053; 81003; 83690; 83735; 85025; 85610; 85730; 86803; 86850; 86900; 86901; 87086; 87389; 87522; 93005; 93010; 96374; 96375; 99285-25; Q9967